=== PATIENT | male | born 1970 | race Caucasian/White ===

== ENCOUNTER → 2017-10-17 | Outpatient (CLI) | payer OTHER ==
[2017-10-17 10:31] LABS: HGB 14.7 gm/dL (13.0-17.5); MCH 33.5 pg (25.0-35.0); MCHC 34.9 g/dL (31.0-37.0); MCV 96.1 fL (80.0-100.0); Mean Platelet Volume 9.2; Platelet Count 100 k/uL (150-450); RBC 4.37 m/uL (4.30-5.90); RDW 13.6 % (11.5-15.5); WBC 5.6 k/uL (3.8-10.6)
[2017-10-17 10:32] LABS: Appearance,Urine Clear (Clear); Bilirubin,Urine Negative (Negative); Blood,Urine Negative (Negative); Color,Urine Light Yellow; Glucose,Urine (UA) Negative (Negative); Ketones,Urine Negative (Negative); Leukocyte Esterase,Urine Negative (Negative); Nitrite,Urine Negative (Negative); Protein,Urine Negative (Negative); Urobilinogen,Urine <2.0 mg/dL (<2.0)
[2017-10-17 10:38] LABS: Partial Thromboplastin Time 25.3 sec (22.0-30.0); Prothrombin Time 9.8 sec (9.0-12.0)
[2017-10-17 10:42] LABS: ALT 47 U/L (21-72); AST 25 U/L (17-59); Albumin 3.9 g/dL (3.5-5.0); Alkaline Phosphatase 68 U/L (38-126); Anion Gap 9 mmol/L; Blood Urea Nitrogen 20 mg/dL (9-20); Calcium 9.1 mg/dL (8.4-10.2); Carbon Dioxide 29 mmol/L (22-30); Chloride 103 mmol/L (98-107); Glucose 92 mg/dL (74-99); Potassium 5.4 mmol/L (3.5-5.1); Sodium 141 mmol/L (137-145); Total Bilirubin 0.8 mg/dL (0.2-1.3); Total Protein 6.1 g/dL (6.3-8.2)
== END | disposition home or self-care (01) ==
LOC: LABPAT 09:43
PROVIDERS: ATTEND Orthopaedic Surgery
DX: Z01.812 Encounter for preprocedural laboratory examination (principal)
CPT/HCPCS: 36415; 80053; 81003; 85027; 85610; 85730; 87070

== ENCOUNTER 2017-11-03 09:34 | Inpatient (IN) | payer OTHER ==
[2017-10-27 12:27] VITALS: BMI 50.9
[~2017-11-03 09:34] MED LIST: ACETAMINOPHEN TAB 500 MG TAB PO ONE; HYDROmorphone 0.5 MG/0.5 ML SYRINGE IVP PRN; ONDANSETRON 4 MG/2 ML VIAL IVP PRN; ROPIVACAINE 246.25 MG, EPINEPHrine 0.5 MG, KETOROLAC 30 MG, cloNIDine HCL/PF 80 MCG, WA... MISCELLANE ONE; TRANEXAMIC ACID 1,000 MG in SODIUM CHLORIDE 0.9% 50 ML IVPB ONE; fentaNYL (PF) 50 MCG/ML 2 ML AMP IV PRN
[2017-11-03] MEDS: MELOXICAM 7.5 MG TAB PO ONE ×2 (10:08→13:45)
[2017-11-03] MEDS ORDERED: LACTATED RINGERS 1,000 ML IV ONE ×3 (10:19→12:21)
[2017-11-03] MEDS ORDERED: LIDOCAINE 1% 20 ML VIAL (10MG/ML) FOR IV START INTRADERMA ONE (10:20)
[2017-11-03] MEDS: ONDANSETRON 4 MG/2 ML VIAL ONE ×2 (10:23→14:31)
[2017-11-03] MEDS ORDERED: DEXAMETHASONE SOD PHOSPHATE 10 MG/ML 1 ML VIAL IV ONE (10:23)
[2017-11-03] MEDS ORDERED: fentaNYL (PF) 50 MCG/ML 2 ML AMP ONE (11:06)
[2017-11-03] MEDS ORDERED: ePHEDrine SULFATE/0.9% NACL/PF 50 MG/5 ML SYRINGE IV ONE (11:06)
[2017-11-03] MEDS ORDERED: MIDAZOLAM 2 MG/2 ML VIAL ONE (11:06)
[2017-11-03] MEDS ORDERED: TRANEXAMIC ACID 1,000 MG/10 ML VIAL ONE (11:06)
[2017-11-03] MEDS ORDERED: SODIUM CHLORIDE 0.9% 100 ML BAG ONE (11:06)
[2017-11-03] MEDS ORDERED: HEPARIN SODIUM,PORCINE 10,000 UNIT/ML 1 ML VIAL ONE (11:06)
[2017-11-03] MEDS ORDERED: LACTATED RINGERS 1,000 ML BAG IV ONE (11:06)
[2017-11-03 11:08] LABS: Basophils % (A) 0 %; Eosinophils # (A) 0.1 k/uL (0-0.7); Eosinophils % (A) 1 %; HCT 43.4 % (39.0-53.0); HGB 15.1 gm/dL (13.0-17.5); Lymphocytes # (A) 1.2 k/uL (1.0-4.8); Lymphocytes % (A) 23 %; MCH 33.4 pg (25.0-35.0); MCHC 34.8 g/dL (31.0-37.0); Mean Platelet Volume 8.9; Monocytes # (A) 0.4 k/uL (0-1.0); Monocytes % (A) 8 %; Neutrophils # (A) 3.5 k/uL (1.3-7.7); Neutrophils % (A) 66 %; Platelet Count 108 k/uL (150-450); RBC 4.52 m/uL (4.30-5.90); WBC 5.3 k/uL (3.8-10.6)
[2017-11-03] MEDS ORDERED: ceFAZolin 3,000 MG in SODIUM CHLORIDE 0.9% IRRIGATIO 3,000 ML IRRIGATION ONE (11:44)
--- NOTE | 2017-11-03 13:37 | XR ---
EXAMINATION TYPE: XR Hip Limited LT DATE OF EXAM: 11/03/2017 COMPARISON: NONE HISTORY: Postop TECHNIQUE: One view submitted. FINDINGS: There is a prosthetic hip in near anatomic alignment. There is soft tissue edema and emphysema. IMPRESSION: 1. Postoperative change. Appears in near-anatomic alignment.
[2017-11-03] MEDS: LACTATED RINGERS 1,000 ML IV SCH ×4 (13:45→17:03)
--- NOTE | 2017-11-03 14:15 | P.OP ---
Date of Procedure: 11/03/17 Preoperative Diagnosis: Severe osteoarthritis left hip Postoperative Diagnosis: Osteoarthritis left hip Procedure(s) Performed: Left total hip arthroplasty with a direct anterior approach Implants: Moncada and nephew Polarstem size 3 standard [employer]cada [employer] Nephew R3, 3 hole acetabular shell, 56 mm [employer]hew reflection 6.5 mm cancellus screw, 20 mm 2 [employer]hew R3, XLPE 20 acetabular liner [employer]cada [employer] Nephew Oxinium femoral head 36 m, +4 All components were press-fit. The articulation is Oxinium on polyethylene. Anesthesia: spinal Surgeon: Markel Lozano Research Professor #1: Josefa Diana Estimated Blood Loss (ml): 380 (230 mL returned with Cell Saver) Pathology: other (Femoral head) Condition: stable Disposition: PACU Indications for Procedure: After failure of conservative treatment we discussed the surgical and nonsurgical treatment options at length. Patient wishes to proceed with a total hip arthroplasty with a direct anterior approach. Complications specific to this procedure were discussed at length, including but not limited to infection, leg length discrepancy, dislocation, and nerve injury. Patient is aware of all these complications and informed consent was obtained Operative Findings: The operative findings are consistent with severe osteoarthritis of the left hip Description of Procedure: Patient was seen and evaluated in the preoperative area, consent was reviewed, and the surgical site was marked with a skin marker. Patient was then brought to the operating room and given prophylactic antibiotics intravenously. 1 g of Tranexamic acid was also given. A spinal anesthetic was administered by the anesthesia department. The patient was then placed on the Dana table with the bony prominences well-padded. The hip area was then prepped and draped in usual sterile fashion. A universal timeout was then performed, which confirmed the patient's name, surgical site, ALLERGIES, and procedure being performed. Next the incision site was located at 1 cm distal and 1 cm lateral to the anterior superior iliac spine. The skin and subcutaneous tissues were sharply incised. Incision was carefully dissected down to the fascia overlying the tensor fascia brittani muscle. This fascia was then incised in line with the incision. Next, using blunt finger dissection, the tensor fascia brittani muscle was dissected off its investing fascia. The muscle was then carefully retracted laterally with a cobra retractor over the lateral neck of the femur. Next, the circumflex vessels were identified and cauterized using the AquaMantis device. The anterior hip capsule was then exposed. The capsule was then opened and an inverted T fashion. Cobra retractors were then placed intracapsularly. The proximal femur was then visualized. The femoral neck was then osteotomized appropriate level above the lesser trochanter. Small amount of traction was placed with the Dana table. A small wedge of bone was then removed from the remaining femoral head. Next, using a corkscrew femoral head was easily removed from the acetabulum. On gross visual inspection, the femoral head had complete loss of articular cartilage in multiple periarticular osteophytes. Attention was then turned to the acetabulum. the acetabulum was exposed and any remaining labrum was excised. Sequential reaming of the acetabulum was performed using fluoroscopic guidance. When the appropriate size was reached, a trial was then placed. The position and fit of the trial was checked with fluoroscopy. The trial was then removed. Then, using fluoroscopic guidance, the final implant was impacted at 20 of anteversion and 40 of abduction, and fully seated in the acetabulum. 2 screws were then placed in the acetabulum. Again fluoroscopy was used to check position of the screws. Next, the liner was then impacted, with a 20 elevated liner located in the anterior superior quadrant. Component locking was confirmed. Attention was then directed to the femur. With the aid of the Dana table, the femur was externally rotated to approximately 130, extended, and abducted under the opposite leg. A side hook was then placed under the proximal femur, and the side hook elevator was used to elevate the proximal femur. Retractors were then placed. A capsular release was performed, as well as a release of the conjoined tendon, which afforded excellent visualization of the proximal femur. Next, a box osteotome was used to lateralize the proximal femur. A hand laster was then used to locate the femoral canal. Sequential broaching was then performed with appropriate size which afforded excellent fixation in the proximal femur. A trial was then placed with appropriate head and neck, and the hip was gently reduced with the aid of the Dana table. Fluoroscopy was then used to check position of the components, as well as to ensure equal leg lengths. The hip was then gently dislocated and the trials were then removed. Final implants were then impacted and the hip was again reduced. Final fluoroscopic x-rays confirmed that the components were in anatomic position, as well as equal leg lengths. The hip was also taken through range of motion, and found to be stable. The hip was then copiously irrigated with antibiotic solution with pulsatile lavage. The hip was then irrigated with Irrisept solution. The soft tissues were then injected with a ropivacaine solution, which consisted of 246.25 mg of ropivacaine, 0.5 mg of epinephrine, 30 mg of Toradol, 80 g of clonidine, and 48.45 mL of sterile water, for a total of 100 mL of fluid injected. A second dose of 1 g of Tranexamic acid was also given. the fascia was then closed with 2-0 strata fix suture. The subcutaneous tissue was closed with 3-0 Vicryl. The subcuticular tissue was closed with 3-0 strata fix suture. The skin was then closed with Dermabond glue and a sterile silver dressing. The patient was then transferred to the recovery room in stable condition. The assistant sales manager DELVIS Ybarra was required due to the complexity of surgery, and the need for skilled surgical brace maker for positioning, draping, exposure, retraction, and closure of the wound.
[2017-11-03] MEDS: HYDROmorphone 0.5 MG/0.5 ML SYRINGE IVP ONE ×2 (14:20→14:28)
--- NOTE | 2017-11-03 14:21 | FL ---
Fluoroscopy HISTORY: Anterior hip placement 39 seconds fluoroscopy time supplied to the referring clinician. 2 intraoperative C-arm images docum ent the procedure. See dictated report from orthopedic surgery.
--- NOTE | 2017-11-03 14:21 | XR ---
Limited left hip HISTORY: Hip replacement 2 intraoperative C-arm images document the procedure
[2017-11-03] MEDS ORDERED: HYDROmorphone 0.5 MG/0.5 ML SYRINGE IVP PRN ×3 (14:35)
[2017-11-03] MEDS ORDERED: HYDROcodone/APAP 5-325MG 1 EACH TAB PO PRN (14:35)
[2017-11-03] MEDS ORDERED: NALOXONE 0.4 MG/ML 1 ML VIAL IV PRN (14:35)
[2017-11-03] MEDS ORDERED: ONDANSETRON 4 MG/2 ML VIAL IVP PRN (14:35)
[2017-11-03] MEDS ORDERED: hydrOXYzine PAMOATE 25 MG CAP PO PRN (14:35)
[2017-11-03] MEDS ORDERED: MAGNESIUM HYDROXIDE 2,400 MG/10 ML CUP PO PRN (14:35)
[2017-11-03] MEDS ORDERED: DIAZEPAM 5 MG TAB PO PRN ×2 (14:35)
[2017-11-03] MEDS: HYDROcodone/APAP 5-325MG 1 EACH TAB PO PRN (15:19)
[2017-11-03] MEDS ORDERED: ceFAZolin 3 GM in SODIUM CHLORIDE 0.9% 100 ML IVPB SCH (16:00)
--- NOTE | 2017-11-03 18:23 | P.CONS ---
History of Present Illness - Reason for Consult Preoperative complication management, thrombocytopenia - History of Present Illness Patient 1-year-old pleasant gentleman admitted for elective Left hip arthroplasty success and underwent surgery urinated post surgery did not pass gas yet did not move his bowel get patient any cough runny nose fever chills patient denied any dysuria. Review of Systems REVIEW OF SYSTEMS: CONSTITUTIONAL: No fever, no malaise, no fatigue. HEENT: No recent visual problems or hearing problems. Denied any sore throat. CARDIOVASCULAR: No chest pain, orthopnea, PND, no palpitations, no syncope. PULMONARY: No shortness of breath, no cough, no hemoptysis. GASTROINTESTINAL: No diarrhea, no nausea, no vomiting, no abdominal pain. Normoactive bowel sounds. NEUROLOGICAL: No headaches, no weakness, no numbness. HEMATOLOGICAL: Denies any bleeding or petechiae. GENITOURINARY: Denies any burning micturition, frequency, or urgency. MUSCULOSKELETAL/RHEUMATOLOGICAL: Denies any joint pain, swelling, or any muscle pain. Complain of some pain in the left hip in the surgical site area ENDOCRINE: Denies any polyuria or polydipsia. The rest of the 14-point review of systems is negative. Past Medical History Past Medical History: GERD/Reflux, Hypertension, Osteoarthritis (OA), Skin Disorder Additional Past Medical History / Comment(s): varicose veins, worse left leg, skin irritation groin, took BP med very briefly few years ago, no issues since History of Any Multi-Drug Resistant Organisms: None Reported Past Surgical History: Tonsillectomy Additional Past Surgical History / Comment(s): myringotomy, tubes in ears Past Anesthesia/Blood Transfusion Reactions: No Reported Reaction Past Psychological History: No Psychological Hx Reported Smoking Status: Never smoker Past Alcohol Use History: Occasional Past Drug Use History: None Reported - Past Family History Mother Family Medical History: Diabetes Mellitus, Hypertension, Thyroid Disorder Additional Family Medical History / Comment(s): crest syndrome, scleroderma, bypass, pacemaker, double amputee Father Family Medical History: Diabetes Mellitus, Hypertension Additional Family Medical History / Comment(s): varicose veins Medications and Allergies Home Medications Medication Instructions Recorded Confirmed Type Clotrimazole/Betameth Cream 1 applic TOPICAL BID PRN 10/27/17 11/03/17 History [Lotrisone] Meloxicam [Mobic] 7.5 mg PO BID 10/27/17 11/03/17 History Allergies Allergy/AdvReac Type Severity Reaction Status Date / Time hydrocodone [From Vicodin] AdvReac Nausea Verified 11/03/17 13:29 lisinopril AdvReac Cough Verified 11/03/17 13:29 Physical Exam Vitals: Vital Signs Temp Pulse Resp BP Pulse Ox 11/03/17 17:00 93 144/76 11/03/17 16:45 95 140/77 11/03/17 16:30 94 129/67 11/03/17 16:15 93 144/77 11/03/17 16:00 95 138/74 11/03/17 15:45 92 137/73 11/03/17 15:30 90 131/67 11/03/17 15:15 87 138/72 11/03/17 15:00 98.9 F 87 18 132/73 97 11/03/17 14:32 87 16 135/72 93 L 11/03/17 14:16 82 16 133/77 97 11/03/17 14:00 87 16 136/63 93 L 11/03/17 13:46 83 16 135/60 94 L 11/03/17 13:31 78 16 141/64 93 L 11/03/17 13:15 72 16 129/62 97 11/03/17 13:04 97.8 F 76 20 126/60 98 11/03/17 10:06 97.1 F L 70 20 129/79 98 Intake and Output 11/03/17 11/03/17 11/03/17 06:59 14:59 22:59 Intake Total 1251 Output Total 380 500 Balance 871 -500 Intake: IV 1251 Output: Urine 500 Estimated Blood Loss 380 Other: Weight 151.953 kg PHYSICAL EXAMINATION: GENERAL: The patient is alert and oriented x3, not in any acute distress. Well developed, well nourished. HEENT: Pupils are round and equally reacting to light. EOMI. No scleral icterus. No conjunctival pallor. Normocephalic, atraumatic. No pharyngeal erythema. No thyromegaly. CARDIOVASCULAR: S1 and S2 present. No murmurs, rubs, or gallops. PULMONARY: Chest is clear to auscultation, no wheezing or crackles. ABDOMEN: Soft, nontender, nondistended, normoactive bowel sounds. No palpable organomegaly. MUSCULOSKELETAL: Deferred to orthopedic surgery EXTREMITIES: No cyanosis, clubbing, or pedal edema. NEUROLOGICAL: Gross neurological examination did not reveal any focal deficits. SKIN: No rashes. Results CBC & Chem 7: 11/03/17 10:47 11/03/17 10:17 Labs: Abnormal Lab Results - Last 24 Hours (Table) 11/03/17 Range/Units 10:47 Plt Count 108 L (150-450) k/uL Assessment and Plan Plan: -Left hip arthroplasty: Postoperative day 0, pain management and DVT prophylaxis per primary service -Thrombocytopenia: Secondary to surgery no further intervention no signs or symptoms of sepsis at this point of time. -Obesity with BMI of 50.9: Counseling was provided We'll continue to follow the patient on as-needed basis thank you for letting me participate in patient's care
[2017-11-03] MEDS: SODIUM CHLORIDE 0.9% 1,000 ML IV SCH (19:23)
[2017-11-03 20:27] VITALS: RESP 16
[2017-11-03] MEDS ORDERED: SENNOSIDES-DOCUSATE SODIUM 1 EACH TAB PO SCH (21:00)
[2017-11-03] MEDS: ASPIRIN 325 MG TAB PO SCH (21:59)
[2017-11-04] MEDS: HYDROcodone/APAP 5-325MG 1 EACH TAB PO PRN (01:47)
[2017-11-04 02:32] VITALS: BP 117/72; TEMP 97.6
[2017-11-04 05:11] VITALS: PULSE 93
[2017-11-04 07:53] LABS: Basophils % (A) 0 %; Eosinophils % (A) 0 %; HCT 40.9 % (39.0-53.0); HGB 14.2 gm/dL (13.0-17.5); Lymphocytes # (A) 0.7 k/uL (1.0-4.8); Lymphocytes % (A) 6 %; MCH 33.5 pg (25.0-35.0); MCHC 34.8 g/dL (31.0-37.0); MCV 96.3 fL (80.0-100.0); Mean Platelet Volume 8.7; Monocytes # (A) 0.7 k/uL (0-1.0); Monocytes % (A) 6 %; Neutrophils # (A) 9.2 k/uL (1.3-7.7); Neutrophils % (A) 86 %; Platelet Count 115 k/uL (150-450); RBC 4.25 m/uL (4.30-5.90); RDW 13.7 % (11.5-15.5); WBC 10.8 k/uL (3.8-10.6)
[2017-11-04] MEDS: SODIUM CHLORIDE 0.9% 1,000 ML IV SCH (08:26)
[2017-11-04] MEDS: ASPIRIN 325 MG TAB PO SCH (08:28)
--- NOTE | 2017-11-04 08:33 | P.DS ---
Providers Date of admission: 11/03/17 09:38 Expected date of discharge: 11/04/17 Attending physician: Markel Lozano Consults: 11/03/17 14:35 Consult Physician Routine Consulting Provider: Markel Cabrera Consult Reason/Comments: medical management Do you want consulting provider notified?: Yes 11/03/17 14:41 Consult Physician Routine Consulting Provider: Asya Slater Consult Reason/Comments: medical management Do you want consulting provider notified?: Yes Primary care physician: Markel Cabrera - Discharge Diagnosis(es) (1) Primary osteoarthritis of left hip Current Visit: Yes Status: Acute (2) S/P total hip arthroplasty Current Visit: Yes Status: Acute Hospital Course: This is a 47-year-old male with known history of degenerative arthritis of the left hip. The patient presents for evaluation. After discussion and consideration patient elects to proceed with total hip arthroplasty. The patient is seen preoperatively by Dr. Lozano and medically cleared for surgery by their primary care physician. Patient is admitted to [facility] on 11/04/2017 for total hip arthroplasty. The procedures performed without complication or sequelae. The patient is doing well postoperatively. Labs and vital signs are stable on day of discharge. On day of discharge patient's hip incision is healing well. There is minimal erythema. There is no drainage noted at this time. There is minimal soft tissue swelling to the hip and thigh. Patient has full foot and ankle motion without difficulty or pain. Neurovascular status to the left lower extremity is intact. Patient is discharged home in good condition. Please see med rec for accurate list of home medications. Plan - Discharge Summary Discharge Rx Participant: Yes New Discharge Prescriptions: New Aspirin 325 mg PO BID #60 tab HYDROcodone/APAP 5-325MG [Morris 5-325] 1 - 2 tab PO Q4-6H PRN #90 tab PRN Reason: Pain Sennosides [Senokot] 1 tab PO BID #60 tablet No Action Meloxicam [Mobic] 7.5 mg PO BID Clotrimazole/Betameth Cream [Lotrisone] 1 applic TOPICAL BID PRN PRN Reason: Skin Irritation Discharge Medication List Clotrimazole/Betameth Cream [Lotrisone] 1 applic TOPICAL BID PRN 10/27/17 [ History] Meloxicam [Mobic] 7.5 mg PO BID 10/27/17 [History] Aspirin 325 mg PO BID #60 tab 11/04/17 [Rx] HYDROcodone/APAP 5-325MG [Morris 5-325] 1 - 2 tab PO Q4-6H PRN #90 tab 11/04/17 [ Rx] Sennosides [Senokot] 1 tab PO BID #60 tablet 11/04/17 [Rx] Follow up Appointment(s)/Referral(s): Markel Lozano DO [Doctor of Osteopathic Medicine] - 2 Weeks Activity/Diet/Wound Care/Special Instructions: Weightbearing as tolerated with walker Leave dressing intact. Dressing may be removed by home care nurse in 10 days. May shower with dressing on. Follow-up with [facility] in 2 weeks, please call with any questions or concerns [phone] Discharge Disposition: HOME WITH HOME HEALTH SERVICES
[2017-11-04] MEDS ORDERED: MELOXICAM 7.5 MG TAB PO SCH (09:00)
== END 2017-11-04 09:57 | disposition home health service (06) | DRG 470 ==
LOC: 2ORMAIN 09:38 → 3SUR 12:58
PROVIDERS: ADMIT Orthopaedic Surgery; ATTEND Orthopaedic Surgery
PROC: 0SRB06A Replacement of Left Hip Joint with Oxidized Zirconium on Polyethylene Synthetic Substitute, Uncemented, Open Approach (ICD-10-PCS; principal; 2017-11-03 11:30)
DX: M16.12 Unilateral primary osteoarthritis, left hip (principal); Z68.43 Body mass index [BMI] 50.0-59.9, adult; D69.6 Thrombocytopenia, unspecified; I10 Essential (primary) hypertension; K21.9 Gastro-esophageal reflux disease without esophagitis; Z82.49 Family history of ischemic heart disease and other diseases of the circulatory system; Z83.3 Family history of diabetes mellitus; Z88.5 Allergy status to narcotic agent; Z88.8 Allergy status to other drugs, medicaments and biological substances; E66.9 Obesity, unspecified; Z71.3 Dietary counseling and surveillance; Z79.1 Long term (current) use of non-steroidal anti-inflammatories (NSAID); Z79.899 Other long term (current) drug therapy
CPT/HCPCS: 36415; 73501; 84132; 85025; 86850; 86891; 86900; 86901; 88300

== ENCOUNTER → 2018-01-12 | Outpatient (CLI) | payer BC ==
--- NOTE | 2018-01-12 11:35 | US ---
EXAMINATION TYPE: US abdomen complete DATE OF EXAM: 01/12/2018 COMPARISON: NONE CLINICAL HISTORY: D69.6, Thrombocytopenia. Large body habitus EXAM MEASUREMENTS: Liver Length: 13.8 cm Gallbladder Wall: 0.4 cm CBD: 0.1 cm Spleen: 12.4 cm Right Kidney: 11.3 x 4.8 x 4.8 cm Left Kidney: 10.9 x 4.3 x 4.3 cm Pancreas: Obscured by bowel gas Liver: fatty liver Gallbladder: multiple stones, gravity dependent, questionable gallbladder wall thickening Evidence for sonographic Rosario's sign: No CBD: wnl Spleen: wnl Right Kidney: wnl Left Kidney: wnl Upper IVC: wnl Abd Aorta: wnl There is poor penetration of the ultrasound beam through the liver. Echotexture is coarse. There is no ascites. Kidneys show normal cortical medullary differentiation. IMPRESSION: Exam is limited. Cholelithiasis, questionable gallbladder wall thickening, correlate for cholecystitis. There may be underlying hepatic steatosis.
== END | disposition home or self-care (01) ==
LOC: RADUSWWP 06:54
PROVIDERS: ATTEND Internal Medicine Hematology & Oncology
DX: K80.20 Calculus of gallbladder without cholecystitis without obstruction (principal); D69.6 Thrombocytopenia, unspecified
CPT/HCPCS: 76700

== ENCOUNTER → 2019-12-13 | Outpatient (CLI) | payer BC ==
--- NOTE | 2019-12-13 15:34 | US ---
EXAMINATION TYPE: US venous doppler duplex LE BI DATE OF EXAM: 12/13/2019 3:16 PM COMPARISON: NONE CLINICAL HISTORY: 49-year-old male E66.01 morbid obesity, R22.41 localized swelling/. Redness, painfu l varicose veins SIDE PERFORMED: Bilateral TECHNIQUE: The lower extremity deep venous system is examined utilizing real time linear array sonog mathieu with graded compression, doppler sonography and color-flow sonography. FINDINGS: VESSELS IMAGED: External Iliac Vein (EIV) Common Femoral Vein Deep Femoral Vein Greater Saphenous Vein * Femoral Vein Popliteal Vein Small Saphenous Vein * Proximal Calf Veins (* superficial vessels) Right Leg: Negative for DVT Left Leg: Negative for DVT Systems Software Engineer notes: Edema and varicose veins noted. No DVT IMPRESSION: 1. No evidence for DVT within the bilateral lower extremities imaged from the groin to the upper calv es. 2. On the left, there is some soft tissue swelling and superficial varicosities noted.
== END | disposition home or self-care (01) ==
LOC: RADUSWWP 14:30
PROVIDERS: ATTEND Family Medicine
DX: R22.41 Localized swelling, mass and lump, right lower limb (principal); R22.42 Localized swelling, mass and lump, left lower limb
CPT/HCPCS: 93970

== ENCOUNTER 2022-08-20 09:58 | Day surgery (SDC) | payer BC ==
[2022-08-18 13:54] VITALS: BMI 47.9
[~2022-08-20 09:58] MED LIST changes: -ACETAMINOPHEN TAB 500 MG TAB PO ONE; -HYDROmorphone 0.5 MG/0.5 ML SYRINGE IVP PRN; +LACTATED RINGERS 1,000 ML IV SCH; -ONDANSETRON 4 MG/2 ML VIAL IVP PRN; -ROPIVACAINE 246.25 MG, EPINEPHrine 0.5 MG, KETOROLAC 30 MG, cloNIDine HCL/PF 80 MCG, WA... MISCELLANE ONE; -TRANEXAMIC ACID 1,000 MG in SODIUM CHLORIDE 0.9% 50 ML IVPB ONE; -fentaNYL (PF) 50 MCG/ML 2 ML AMP IV PRN
[2022-08-20 10:29] VITALS: TEMP 97.8
[2022-08-20] MEDS ORDERED: PROPOFOL 10 MG/ML 20 ML VIAL IV ONE (12:00)
[2022-08-20] MEDS ORDERED: MIDAZOLAM 2 MG/2 ML VIAL ONE (12:00)
--- NOTE | 2022-08-20 12:15 | P.PCN ---
Date of Procedure: 08/20/22 Procedure(s) Performed: BRIEF HISTORY: Patient is a 52-year-old pleasant white male scheduled for an elective colonoscopy as a part of evaluation of prior history of colon polyps. Last colonoscopy was 5 years ago. PROCEDURE PERFORMED: Colonoscopy With biopsy PREOPERATIVE DIAGNOSIS: History of colon polyps. IV sedation per Anesthesia. PROCEDURE: After informed consent was obtained, the patient, was brought into the endoscopy unit. IV sedation was administered by Anesthesia under continuous monitoring. Digital rectal examination was normal. Initially the Olympus CF-160 flexible video colonoscope was then inserted in the rectum, gradually advanced into the cecum without any difficulty. Careful examination was performed as the scope was gradually being withdrawn. Ileocecal valve and the appendiceal orifice were visualized and appeared normal. Prep was fair. In the base of the cecum there was a 3 mm sessile polyp removed by cold biopsy. Mucosa of the cecum, ascending colon, transverse colon, descending colon, appeared normal. The sigmoid: There was another 3 mm polyp that was removed by cold biopsy. Rest of the sigmoid colon, and rectum appeared normal. Retroflexion was performed in the rectum and no lesions were seen. The patient tolerated the procedure well. IMPRESSION: 3 mm cecal polyp status post cold biopsy 3 mm; sigmoid polyp status post cold biopsy Rest of the colon appeared normal RECOMMENDATIONS: Findings of this examination were discussed with the patient [as well as his family. He was advised to follow with the biopsy results. If the biopsy reveals adenoma he can have a repeat colonoscopy in 5 years
[2022-08-20 12:31] VITALS: RESP 16
[2022-08-20 12:53] VITALS: BP 118/78; PULSE 64
== END 2022-08-20 13:15 | disposition home or self-care (01) ==
LOC: ORWHC2ENDO 09:58
PROVIDERS: ATTEND Internal Medicine Gastroenterology
DX: Z12.11 Encounter for screening for malignant neoplasm of colon (principal); K63.5 Polyp of colon; I10 Essential (primary) hypertension; K21.9 Gastro-esophageal reflux disease without esophagitis; Z86.010 Personal history of colon polyps; Z79.899 Other long term (current) drug therapy
CPT/HCPCS: 88305; 45385; J2250; J2704

== ENCOUNTER → 2023-09-30 | Outpatient (CLI) | payer BC ==
--- NOTE | 2023-09-30 09:12 | US ---
EXAMINATION TYPE: US abdomen complete DATE OF EXAM: 09/30/2023 COMPARISON: Abdominal ultrasound 01/12/2018 CLINICAL INDICATION: Male, 53 years old with history of R1011 RUQ pain, R1013 epigastric pain, R140 gaseous; Pain. Abnormal labs. Hx gallstones TECHNIQUE: Multiple sonographic images of the abdomen are obtained. FINDINGS: EXAM MEASUREMENTS: Liver Length: 18.9 cm Gallbladder Wall: 0.1 cm CBD: 0.5 cm Spleen: 14.7 cm Right Kidney: 10.7 x 5.7 x 5.1 cm Left Kidney: 11.0 x 5.0 x 4.7 cm CONSULTANT IN ERGONOMICS AND SAFETY NOTES: Limited due to patient body habitus Pancreas: Obscured by bowel gas Liver: Enlarged in size, echogenic, limited visualization Gallbladder: Multiple echogenic foci seen Evidence for sonographic Rosario's sign: neg CBD: wnl Spleen: Enlarged in size Right Kidney: No hydronephrosis or masses seen Left Kidney: No hydronephrosis or masses seen Upper IVC: Obscured by overlying bowel gas Abd Aorta: Proximal obscured by overlying bowel gas The liver is diffusely echogenic and enlarged. No focal lesion identified however the echogenicity li mits evaluation. The intrahepatic portion of the IVC and proximal abdominal aorta are obscured by ove rlying bowel gas. The mid and distal portions of the abdominal aorta are within normal limits. Negati ve sonographic Rosario sign or gallbladder wall thickening. Multiple gallstones identified. Common bi le duct is unremarkable. The pancreas is obscured by overlying bowel gas. The spleen is mildly enlar ged. Kidneys are symmetric and free of hydronephrosis. No renal lesions are seen. No free fluid iden tified within the visualized abdomen. IMPRESSION: 1. Cholelithiasis without ultrasound evidence for acute cholecystitis. 2. Hepatomegaly and hepatic steatosis. 3. Splenomegaly.
== END | disposition home or self-care (01) ==
LOC: RADUSWWP 07:54
PROVIDERS: ATTEND Family Medicine
DX: K80.20 Calculus of gallbladder without cholecystitis without obstruction (principal); K76.0 Fatty (change of) liver, not elsewhere classified; R16.2 Hepatomegaly with splenomegaly, not elsewhere classified; R14.0 Abdominal distension (gaseous); R79.9 Abnormal finding of blood chemistry, unspecified
CPT/HCPCS: 76700

== ENCOUNTER 2024-02-07 17:24 | Inpatient (IN) | payer BC ==
--- NOTE | 2024-02-07 18:11 | ED ---
Abdominal Pain HPI - General Chief Complaint: Abdominal Pain Stated Complaint: Abd pain Time Seen by Provider: 02/07/24 18:10 Source: patient, family, RN notes reviewed Mode of arrival: ambulatory Limitations: no limitations - History of Present Illness Initial Comments: 53-year-old male presented to the ER with a chief complaint of epigastric abdominal pain. Patient was eating chicken tenders yesterday during onset of pain. Patient was had a long car ride home and had multiple bouts of nausea and vomiting on the way home. He has tried Pepto-Bismol and Tums with relief last night. Patient states he ate oatmeal this morning and around lunchtime consumed mac & cheese and pizza. Patient reports pain returned after mac & cheese and pizza for lunch. Patient also states pain has been wrapping around to right flank and back. Admits to nausea and vomiting. Denies any fevers, chills, diarrhea, constipation, urinary complaints. - Related Data Home Medications Medication Instructions Recorded Confirmed Losartan/Hydrochlorothiazide 1 tab PO DAILY 08/18/22 08/20/22 [Losartan-Hctz 100-25 mg Tab] Testosterone Cypionate 200 mg IM Q14D 08/18/22 08/20/22 [Depo-Testosterone] Allergies Allergy/AdvReac Type Severity Reaction Status Date / Time hydrocodone [From Vicodin] AdvReac Nausea Verified 02/07/24 17:30 lisinopril AdvReac Cough Verified 02/07/24 17:30 Review of Systems ROS Statement: Those systems with pertinent positive or pertinent negative responses have been documented in the HPI. ROS Other: All systems not noted in ROS Statement are negative. Past Medical History Past Medical History: GERD/Reflux, Hypertension, Osteoarthritis (OA) Additional Past Medical History / Comment(s): Varicose veins, worse in left leg. History of Any Multi-Drug Resistant Organisms: None Reported Past Surgical History: Ear Surgery, Joint Replacement, Tonsillectomy Additional Past Surgical History / Comment(s): Myringotomy, tubes in ears, left hip replacement, procedures to varicose veins left leg, colonoscopy X2. Past Anesthesia/Blood Transfusion Reactions: No Reported Reaction, Motion Sickness Past Psychological History: No Psychological Hx Reported Smoking Status: Never smoker Past Alcohol Use History: None Reported Past Drug Use History: None Reported - Past Family History Mother Family Medical History: Diabetes Mellitus, Hypertension, Thyroid Disorder Additional Family Medical History / Comment(s): Crest syndrome, scleroderma, bypass, pacemaker, double amputee. Father Family Medical History: Diabetes Mellitus, Hypertension Additional Family Medical History / Comment(s): Varicose veins. General Exam - General Exam Comments Initial Comments: Visual Physical Exam Vital signs reviewed General: Well-appearing, nontoxic, no acute distress. Head: Normocephalic, atraumatic Eyes: PERRLA, EOMI ENT: Airway patent Chest: Nonlabored breathing Skin: No visual rash, normal skin tone Neuro: Alert and oriented 3 Musculoskeletal: No gross abnormalities Limitations: no limitations General appearance: alert, in no apparent distress, anxious (Patient is pacing in hallway unable to lay down due to pain.) Respiratory exam: Present: normal lung sounds bilaterally. Absent: respiratory distress, wheezes, rales, rhonchi, stridor Cardiovascular Exam: Present: regular rate, normal rhythm, normal heart sounds. Absent: systolic murmur, diastolic murmur, rubs, gallop, clicks GI/Abdominal exam: Present: soft, tenderness (Right upper quadrant/epigastric), normal bowel sounds Back exam: Present: normal inspection Neurological exam: Present: alert, oriented X3, CN II-XII intact Skin exam: Present: warm, dry, intact, normal color. Absent: rash Course Vital Signs 02/07/24 02/07/24 17:27 22:03 Temperature 98.1 F 97.9 F Pulse Rate 84 67 Respiratory 16 16 Rate Blood Pressure 159/82 136/80 O2 Sat by Pulse 99 97 Oximetry - Reevaluation(s) Reevaluation #1: 02/07/24 20:45 Case discussed with on-call general surgery, Dr. Burleson who advised on medical admission. 02/07/24 20:58 Case discussed with [facility] physician, Dr. Linares for admission. Medical Decision Making - Medical Decision Making I performed the quick note portion of this chart. Electronically signed by Darek Mcgovern PA-C Was pt. sent in by a medical professional or institution (DELVIS Slater, MATERIAL FLOW ENGINEER, urgent care, hospital, or detention...) When possible be specific @ -No Did you speak to anyone other than the patient for history (EMS, parent, family, police, friend...)? What history was obtained from this source @ -, at bedside, aiding in HPI and past medical history. Did you review nursing and triage notes (agree or disagree)? Why? @ -I reviewed and agree with nursing and triage notes Were old charts reviewed (outside hosp., previous admission, EMS record, old EKG, old radiological studies, urgent care reports/EKG's, detention records)? Report findings @ -No old charts were reviewed Differential Diagnosis (chest pain, altered mental status, abdominal pain women, abdominal pain men, vaginal bleeding, weakness, fever, dyspnea, syncope, headache, dizziness, GI bleed, back pain, seizure, CVA, palpatations, mental health, musculoskeletal)? @ -Differential Abdominal Pain Men: Appendicitis, cholecystitis, diverticulosis, ischemic bowel, pancreatitis, hepatitis, UTI, gastroenteritis, AAA, incarcerated hernia, bowel obstruction, constipation, inflammatory bowel, hepatitis, peptic ulcer disease, splenic infarction, perforated viscus, testicular torsion, this is not meant to be an all-inclusive list EKG interpreted by me (3pts min.). @ -As above X-rays interpreted by me (1pt min.). @ -None done CT interpreted by me (1pt min.). @ -None done U/S interpreted by me (1pt. min.). @ -Gallbladder ultrasound showing cholelithiasis with positive sonographic Rosario sign correlate with acute cholecystitis. Common bile duct 0.8 cm. What testing was considered but not performed or refused? (CT, X-rays, U/S, labs)? Why? @ -None What meds were considered but not given or refused? Why? @ -None Did you discuss the management of the patient with other professionals (professionals i.e. , PA, MATERIAL FLOW ENGINEER, lab, RT, psych nurse, licensed clinical social worker, animal trapper, teacher, credit control officer, piano case maker)? Give summary @ -Yes, case discussed with on-call general surgery, Dr. Burleson, who advises on admission to medicine with surgery on consult. Case discussed with sound physician, Dr. Linares for admission. Was smoking cessation discussed for >3mins.? @ -No Was critical care preformed (if so, how long)? @ -No Were there social determinants of health that impacted care today? How? (Homelessness, low income, unemployed, alcoholism, drug addiction, transportation, low edu. Level, literacy, decrease access to med. care, fdc, rehab)? @ -No Was there de-escalation of care discussed even if they declined (Discuss DNR or withdrawal of care, Hospice)? DNR status @ -No What co-morbidities impacted this encounter? (DM, HTN, Smoking, COPD, CAD, Cancer, CVA, ARF, Chemo, Hep., AIDS, mental health diagnosis, sleep apnea, morbid obesity)? @ -Obese, hypertension, GERD Was patient admitted / discharged? Hospital course, mention meds given and route, prescriptions, significant lab abnormalities, going to OR and other pertinent info. @ -Admitted. 53-year-old male presented the ER with a chief complaint of epigastric abdominal pain. Patient originally seen by myself as a quick note. History and physical exam completed upon arrival to [facility]. Vitals within normal limits. Patient pacing in hallway as he is in too much pain to lay down. Exam remarkable for right upper quadrant/epigastric abdominal pain no rebound or guarding. Normal bowel sounds. No CVA tenderness. Laboratory studies obtained showing a WBC 7.1, lactic 1.4. Transaminitis (total bilirubin 3.4, AST 237, ALT 248, alk phos 136). Urine analysis unremarkable. Amylase 58, lipase 189. Gallbladder ultrasound showing cholelithiasis with positive sonographic Rosario sign correlate with acute cholecystitis. Common bile duct measuring 0.8 cm. Due to transaminitis and ultrasound CBD enlargement findings admission considered for cholecystitis rule out choledocholithiasis. Case discussed with on-call general surgery, Dr. Burleson, who advises on admission to medicine with surgery and GI on consult. Case discussed with [facility] [place] physicia n, Dr. Linares who accepts admission. IV Zosyn and blood cultures ordered by Dr. Linares. GI on consult. Patient received IV Toradol and IV Zofran for symptom control in the ER, with improvement. Patient agreeable for admission. Patient admitted in stable condition for further evaluation and treatment. Case discussed with ED attending, Dr. Mac. Undiagnosed new problem with uncertain prognosis? @ -No Drug Therapy requiring intensive monitoring for toxicity (Heparin, Nitro, In sulin, Cardizem)? @ -No Were any procedures done? @ -No Diagnosis/symptom? @ -Cholecystitis rule out choledocholithiasis Acute, or Chronic, or Acute on Chronic? @ -Acute Uncomplicated (without systemic symptoms) or Complicated (systemic symptoms)? @ -Complicated Side effects of treatment? @ -No Exacerbation, Progression, or Severe Exacerbation? @ -No Poses a threat to life or bodily function? How? (Chest pain, [place], [place], pneumonia, PE, COPD, DKA, ARF, appy, cholecystitis, CVA, Diverticulitis, Homicidal, Suicidal, threat to staff... and all critical care pts) @ -Yes, cholecystitis and choledocholithiasis can lead to sepsis which can lead to end organ dysfunction. - Lab Data Result diagrams: 02/07/24 19:15 02/07/24 19:15 Lab Results 02/07/24 02/07/24 02/07/24 Range/Units 19:15 19:15 19:15 WBC 7.1 (3.8-10.6) k/uL RBC 5.16 (4.30-5.90) m/uL Hgb 17.7 H (13.0-17.5) gm/dL Hct 52.0 (39.0-53.0) % MCV 100.9 H (80.0-100.0) fL MCH 34.4 (25.0-35.0) pg MCHC 34.1 (31.0-37.0) g/dL RDW 13.1 (11.5-15.5) % Plt Count 117 L (150-450) k/uL MPV 9.8 Neutrophils % 78 % Lymphocytes % 14 % Monocytes % 6 % Eosinophils % 1 % Basophils % 0 % Neutrophils # 5.5 (1.3-7.7) k/uL Lymphocytes # 1.0 (1.0-4.8) k/uL Monocytes # 0.4 (0-1.0) k/uL Eosinophils # 0.1 (0-0.7) k/uL Basophils # 0.0 (0-0.2) k/uL Macrocytosis Slight Sodium 140 (137-145) mmol/L Potassium 3.7 (3.5-5.1) mmol/L Chloride 96 L (98-107) mmol/L Carbon Dioxide 34 H (22-30) mmol/L Anion Gap 10 mmol/L BUN 21 H (9-20) mg/dL Creatinine 1.03 (0.66-1.25) mg/dL Est GFR (CKD-EPI)AfAm >90 (>60 ml/min/1.73 sqM) Est GFR (CKD-EPI)NonAf 82 (>60 ml/min/1.73 sqM) Glucose 112 H (74-99) mg/dL Plasma Lactic Acid Mathew (0.7-2.0) mmol/L Calcium 10.2 (8.4-10.2) mg/dL Total Bilirubin 3.4 H (0.2-1.3) mg/dL AST 237 H (17-59) U/L ALT 248 H (4-49) U/L Alkaline Phosphatase 136 H (38-126) U/L Total Protein 7.7 (6.3-8.2) g/dL Albumin 5.1 H (3.5-5.0) g/dL Amylase 58 (30-110) U/L Lipase 189 (23-300) U/L Urine Color Yellow Urine Appearance Clear (Clear) Urine pH 6.5 (5.0-8.0) Ur Specific Martha 1.017 (1.001-1.035) Urine Protein Negative (Negative) Urine Glucose (UA) Negative (Negative) Urine Ketones Negative (Negative) Urine Blood Negative (Negative) Urine Nitrite Negative (Negative) Urine Bilirubin Negative (Negative) Urine Urobilinogen 2.0 (<2.0) mg/dL Ur Leukocyte Esterase Large H (Negative) Urine RBC 1 (0-5) /hpf Urine WBC 2 (0-5) /hpf Urine Mucus Rare H (None) /hpf 02/07/24 Range/Units 19:15 WBC (3.8-10.6) k/uL RBC (4.30-5.90) m/uL Hgb (13.0-17.5) gm/dL Hct (39.0-53.0) % MCV (80.0-100.0) fL MCH (25.0-35.0) pg MCHC (31.0-37.0) g/dL RDW (11.5-15.5) % Plt Count (150-450) k/uL MPV Neutrophils % % Lymphocytes % % Monocytes % % Eosinophils % % Basophils % % Neutrophils # (1.3-7.7) k/uL Lymphocytes # (1.0-4.8) k/uL Monocytes # (0-1.0) k/uL Eosinophils # (0-0.7) k/uL Basophils # (0-0.2) k/uL Macrocytosis Sodium (137-145) mmol/L Potassium (3.5-5.1) mmol/L Chloride (98-107) mmol/L Carbon Dioxide (22-30) mmol/L Anion Gap mmol/L BUN (9-20) mg/dL Creatinine (0.66-1.25) mg/dL Est GFR (CKD-EPI)AfAm (>60 ml/min/1.73 sqM) Est GFR (CKD-EPI)NonAf (>60 ml/min/1.73 sqM) Glucose (74-99) mg/dL Plasma Lactic Acid Mathew 1.4 (0.7-2.0) mmol/L Calcium (8.4-10.2) mg/dL Total Bilirubin (0.2-1.3) mg/dL AST (17-59) U/L ALT (4-49) U/L Alkaline Phosphatase (38-126) U/L Total Protein (6.3-8.2) g/dL Albumin (3.5-5.0) g/dL Amylase (30-110) U/L Lipase (23-300) U/L Urine Color Urine Appearance (Clear) Urine pH (5.0-8.0) Ur Specific Martha (1.001-1.035) Urine Protein (Negative) Urine Glucose (UA) (Negative) Urine Ketones (Negative) Urine Blood (Negative) Urine Nitrite (Negative) Urine Bilirubin (Negative) Urine Urobilinogen (<2.0) mg/dL Ur Leukocyte Esterase (Negative) Urine RBC (0-5) /hpf Urine WBC (0-5) /hpf Urine Mucus (None) /hpf - EKG Data -: EKG Interpreted by Hi EKG Comments: EKG taken at 19: 19 showing a sinus rhythm. Inverted T waves in lead III. No acute ST segment depression or elevation. Normal axis. Ventricular rate 84, AR interval 151, QRS duration 94, QT/QTc 328/368. - Radiology Data Radiology results: report reviewed, image reviewed Disposition Clinical Impression: Acute cholecystitis, Transaminitis Disposition: ADMITTED IP TO THIS [facility] Condition: Stable Time of Disposition: 20:54
[2024-02-07] MEDS: ONDANSETRON 4 MG/2 ML VIAL IVP STA (19:31)
[2024-02-07 19:32] LABS: Basophils % (A) 0 %; Eosinophils # (A) 0.1 k/uL (0-0.7); Eosinophils % (A) 1 %; HGB 17.7 gm/dL (13.0-17.5); Lymphocytes % (A) 14 %; MCH 34.4 pg (25.0-35.0); MCHC 34.1 g/dL (31.0-37.0); MCV 100.9 fL (80.0-100.0); Macrocytosis Slight; Mean Platelet Volume 9.8; Monocytes # (A) 0.4 k/uL (0-1.0); Monocytes % (A) 6 %; Neutrophils # (A) 5.5 k/uL (1.3-7.7); Neutrophils % (A) 78 %; Platelet Count 117 k/uL (150-450); RBC 5.16 m/uL (4.30-5.90); RDW 13.1 % (11.5-15.5); WBC 7.1 k/uL (3.8-10.6)
[2024-02-07] MEDS: KETOROLAC 15 MG/ML 1 ML VIAL IVP STA (19:32)
[2024-02-07] MEDS: SODIUM CHLORIDE 0.9% 1,000 ML IV STA (19:33)
[2024-02-07] MEDS: FAMOTIDINE 20 MG/2 ML VIAL IV STA (19:35)
[2024-02-07 19:56] LABS: Appearance,Urine Clear (Clear); Bilirubin,Urine Negative (Negative); Blood,Urine Negative (Negative); Color,Urine Yellow; Glucose,Urine (UA) Negative (Negative); Ketones,Urine Negative (Negative); Leukocyte Esterase,Urine Large (Negative); Mucus,Urine Rare /hpf; Nitrite,Urine Negative (Negative); PH, Urine 6.5 (5.0-8.0); Protein,Urine Negative (Negative); RBC,Urine 1 /hpf (0-5); Specific Gravity,Urine 1.017 (1.001-1.035); WBC,Urine 2 /hpf (0-5)
[2024-02-07 19:59] LABS: ALT 248 U/L (4-49); AST 237 U/L (17-59); African American GFR (CKD) >90 (>60 ml/min/1.73 sqM); Albumin 5.1 g/dL (3.5-5.0); Alkaline Phosphatase 136 U/L (38-126); Amylase 58 U/L (30-110); Anion Gap 10 mmol/L; Blood Urea Nitrogen 21 mg/dL (9-20); Calcium 10.2 mg/dL (8.4-10.2); Carbon Dioxide 34 mmol/L (22-30); Chloride 96 mmol/L (98-107); Glucose 112 mg/dL (74-99); Lipase 189 U/L (23-300); Non-African American GFR(CKD) 82 (>60 ml/min/1.73 sqM); Potassium 3.7 mmol/L (3.5-5.1); Sodium 140 mmol/L (137-145); Total Bilirubin 3.4 mg/dL (0.2-1.3); Total Protein 7.7 g/dL (6.3-8.2)
--- NOTE | 2024-02-07 20:07 | US ---
EXAMINATION TYPE: US gallbladder DATE OF EXAM: 02/07/2024 COMPARISON: US CLINICAL INDICATION: Male, 53 years old with history of RUQ/epigastric abd pain; Pain, known gallston es TECHNIQUE: Multiple sonographic images of the right upper quadrant are obtained. FINDINGS: EXAM MEASUREMENTS: Liver Length: 20.1 cm Gallbladder Wall: 0.3 cm CBD: 0.8 cm Right Kidney: 11.4 x 5.3 x 5.2 cm INTERACTIVE DIGITAL MEDIA SPECIALIST NOTES: Large pt body habitus* Pancreas: Obscured by bowel gas Liver: Enlarged, difficult to penetrate Gallbladder: Multiple gallstones, wall thickness upper limits of normal Evidence for sonographic Rosario's sign: Yesq CBD: Dilated Right Kidney: No evidence of hydro IMPRESSION: Cholelithiasis with positive sonographic Rosario sign correlate for acute cholecystitis. The wall is w ithin normal limits for size. [facility], , 02/07/2024 8:05 PM
[2024-02-07] MEDS ORDERED: ACETAMINOPHEN TAB 325 MG TAB PO PRN (20:54)
[2024-02-07] MEDS ORDERED: NALOXONE 0.4 MG/ML 1 ML VIAL IV PRN (20:54)
[2024-02-07] MEDS: SODIUM CHLORIDE 0.9% 1,000 ML IV SCH (21:38)
[2024-02-07] MEDS: PIPERACILLIN-TAZOBACTAM 3.375 GM in SODIUM CHLORIDE 0.9% 100 ML IVPB SCH (21:40)
[2024-02-07] MEDS: HYDROmorphone 1 MG/ML 1 ML SYRINGE IVP STA (22:24)
--- NOTE | 2024-02-08 01:30 | P.HPIM ---
History of Present Illness H&P Date: 02/07/24 Chief Complaint: abd pain 53 year old male with Hypertension , JUANJO patient coming in for abd pain which started yesterday 6-8 /10 in severity , RUQ, radiating to the back, associated with vomiting, started yesterday , improved at night , and got worse again this afternoon. usually getting worse with fatty meals, last night pain started after eating some romansh fries , and today pain precipitated with Mac and cheese at lunch. denies any abd trauma or surgery . he is aware of gall stones since September 2023 when he had similar symptoms. denies any fever, chills, GI bleeding. denies smoking , denies street drugs or heavy alcohol review of systems Pertinent positives as noted in HPI. All other systems were reviewed and are negative on exam Constitutional: No acute distress, conversant, pleasant Eyes: Anicteric sclerae, moist conjunctiva, Pupils equal round reactive to light ENMT: NC/AT Oropharynx clear, no erythema, or exudates Neck: Supple, no masses, or JVD No carotid bruits No thyromegaly Lungs: Clear to auscultation Clear to percussion Normal respiratory effort, no accessory muscle use Cardiovascular: Heart regular in rate and rhythm, No murmurs, gallops, or rubs No peripheral edema Abdominal: Soft RUQ tenderness , Rosario sign positive, no guarding, rebound or rigidity Abdomen moving with respiration Normoactive bowel sounds Extremities: No digital cyanosis No clubbing Pedal pulses intact and symmetrical Radial pulses intact and symmetrical No calf tenderness Psychiatric: Alert and oriented to person, place and time Appropriate affect fair judgement Neuro Muscles Strength 5/5 in all 4 extremities Sensation to light touch grossly present throughout Cranial nerves II-XII grossly intact Past Medical History Past Medical History: GERD/Reflux, Hypertension, Osteoarthritis (OA) Additional Past Medical History / Comment(s): Varicose veins, worse in left leg. History of Any Multi-Drug Resistant Organisms: None Reported Past Surgical History: Ear Surgery, Joint Replacement, Tonsillectomy Additional Past Surgical History / Comment(s): Myringotomy, tubes in ears, left hip replacement, procedures to varicose veins left leg, colonoscopy X2. Past Anesthesia/Blood Transfusion Reactions: No Reported Reaction, Motion Sickness Past Psychological History: No Psychological Hx Reported Smoking Status: Never smoker Past Alcohol Use History: None Reported Past Drug Use History: None Reported - Past Family History Mother Family Medical History: Diabetes Mellitus, Hypertension, Thyroid Disorder Additional Family Medical History / Comment(s): Crest syndrome, scleroderma, bypass, pacemaker, double amputee. Father Family Medical History: Diabetes Mellitus, Hypertension Additional Family Medical History / Comment(s): Varicose veins. Medications and Allergies Home Medications Medication Instructions Recorded Confirmed Type Losartan/Hydrochlorothiazide 1 tab PO DAILY 08/18/22 08/20/22 History [Losartan-Hctz 100-25 mg Tab] Testosterone Cypionate 200 mg IM Q14D 08/18/22 08/20/22 History [Depo-Testosterone] Allergies Allergy/AdvReac Type Severity Reaction Status Date / Time hydrocodone [From Vicodin] AdvReac Nausea Verified 02/07/24 17:30 lisinopril AdvReac Cough Verified 02/07/24 17:30 Physical Exam Vitals: Vital Signs Temp Pulse Resp BP Pulse Ox 02/07/24 17:27 98.1 F 84 16 159/82 99 Intake and Output 02/07/24 02/07/24 02/07/24 06:59 14:59 22:59 Other: Weight 136.078 kg Results CBC & Chem 7: 02/07/24 19:15 02/07/24 19:15 Labs: Abnormal Lab Results - Last 24 Hours (Table) 02/07/24 02/07/24 02/07/24 Range/Units 19:15 19:15 19:15 Hgb 17.7 H (13.0-17.5) gm/dL MCV 100.9 H (80.0-100.0) fL Plt Count 117 L (150-450) k/uL Chloride 96 L (98-107) mmol/L Carbon Dioxide 34 H (22-30) mmol/L BUN 21 H (9-20) mg/dL Glucose 112 H (74-99) mg/dL Total Bilirubin 3.4 H (0.2-1.3) mg/dL AST 237 H (17-59) U/L ALT 248 H (4-49) U/L Alkaline Phosphatase 136 H (38-126) U/L Albumin 5.1 H (3.5-5.0) g/dL Ur Leukocyte Esterase Large H (Negative) Urine Mucus Rare H (None) /hpf Assessment and Plan Assessment: 53 year old male with hypertension , JUANJO, coming in for sudden onset abd pain and vomiting, I discussed the case with ED doc and I accepted the admission for choledocholithiasis with acute cholecystitis with anticipated length of stay > 2 midnights choledocholithiasis with acute cholecystitis transaminitis , rule out ascending cholangitis NPO blood cultures initiate Zosyn 3.375 gm IVPB q8 hrs tylenol 650 mg po Q6hr PRN for fever morphine 4 mg IVP prn q3 hr prn for pain zofran 4 mg IVP q 8 hr PRN for nausea vomiting NS 0.9% IV hydration 100 cc per hour WBC unremarkable 7.1 Hgn 17.7 elevated liver enzymes Bili 3.4 , AST 237 ALT 248 ALK Phos 136 GI consult surgery consult Abd US showed cholelithiasis and possible acute cholecystitis hypertension resume losartan JUANJO recently started on CPAP not sure of his settings at this time full code DVT PPX heparin sc 5000 units tid NPO diet
[2024-02-08] MEDS: HEPARIN SODIUM,PORCINE 5,000 UNIT/ML 1 ML VIAL SQ SCH (07:38)
--- NOTE | 2024-02-08 07:47 | P.PN ---
Progress Note - Text Progress Note Date: 02/08/24 53-year-old male presented to the ER with a chief complaint of epigastric abdominal pain. Patient was eating chicken tenders yesterday during onset of pain. Patient was had a long car ride home and had multiple bouts of nausea and vomiting on the way home. He has tried Pepto-Bismol and Tums with relief last night. Patient states he ate oatmeal this morning and around lunchtime consumed mac & cheese and pizza. Patient reports pain returned after mac & cheese and pizza for lunch. Patient also states pain has been wrapping around to right flank and back. Admits to nausea and vomiting. Denies any fevers, chills, diarrhea, constipation, urinary complaints. He is noted to elevated Bilirubin and LFTs. His US is significant for cholelithiasis. Review of Systems ROS Statement: Those systems with pertinent positive or pertinent negative responses have been documented in the HPI. Past Medical History Past Medical History: GERD/Reflux, Hypertension, Osteoarthritis (OA) Additional Past Medical History / Comment(s): Varicose veins, worse in left leg. History of Any Multi-Drug Resistant Organisms: None Reported Past Surgical History: Ear Surgery, Joint Replacement, Tonsillectomy Additional Past Surgical History / Comment(s): Myringotomy, tubes in ears, left hip replacement, procedures to varicose veins left leg, colonoscopy X2. Past Anesthesia/Blood Transfusion Reactions: No Reported Reaction, Motion Sickness Past Psychological History: No Psychological Hx Reported Smoking Status: Never smoker Past Alcohol Use History: None Reported Past Drug Use History: None Reported - Past Family History Mother Family Medical History: Diabetes Mellitus, Hypertension, Thyroid Disorder Additional Family Medical History / Comment(s): Crest syndrome, scleroderma, bypass, pacemaker, double amputee. Father Family Medical History: Diabetes Mellitus, Hypertension Additional Family Medical History / Comment(s): Varicose veins. General Exam Limitations: no limitations General appearance: alert, in no apparent distress, anxious (Patient is pacing in hallway unable to lay down due to pain.) Respiratory exam: Present: normal lung sounds bilaterally. Absent: respiratory distress, wheezes, rales, rhonchi, stridor Cardiovascular Exam: Present: regular rate, normal rhythm, normal heart sounds. Absent: systolic murmur, diastolic murmur, rubs, gallop, clicks GI/Abdominal exam: Present: soft, tenderness (Right upper quadrant/epigastric), normal bowel sounds Back exam: Present: normal inspection Neurological exam: Present: alert, oriented X3, CN II-XII intact Skin exam: Present: warm, dry, intact, normal color. Absent: rash 53 year old male Cholelithiasis and associated elevated Bilirubin -US reviewed -MRCP ordered to evaluate for likely Choledocholithiasis -GI consult for evaluation and possible ERCP -Will plan for inpatient Cholecystectomy after GI eval and possible treatment -Pain and Nausea Control Juan Burleson DO [facility] [phone]
[2024-02-08] MEDS: LOSARTAN-HCTZ 50-12.5 MG 1 EACH TAB PO SCH (08:53)
[2024-02-08 09:30] LABS: Prothrombin Time 10.8 sec (10.0-12.5)
[2024-02-08 10:35] LABS: ALT 321 U/L (10-49); AST 234 U/L (14-35); Albumin 3.7 g/dL (3.8-4.9); Albumin/Globulin Ratio 2.47 Ratio (1.60-3.17); Alkaline Phosphatase 125 U/L (41-126); Blood Urea Nitrogen 17.6 mg/dL (9.0-27.0); Calcium 8.5 mg/dL (8.7-10.3); Carbon Dioxide 25.2 mmol/L (21.6-31.8); Chloride 107 mmol/L (96-109); Globulin 1.5 g/dL (1.6-3.3); Glucose 104 mg/dL (70-110); Potassium 4.1 mmol/L (3.5-5.5); Sodium 141 mmol/L (135-145); Total Bilirubin 1.2 mg/dL (0.3-1.2); Total Protein 5.2 g/dL (6.2-8.2)
--- NOTE | 2024-02-08 10:54 | P.CONS ---
History of Present Illness - Reason for Consult Consult date: 02/08/24 Choledocholithiasis Requesting physician: Myesha Mcgovern - Chief Complaint Abdominal pain - History of Present Illness This a pleasant 53-year-old male who presented to the emergency department with complaints of epigastric and right upper quadrant abdominal pain associated with nausea and vomiting. Patient was out of town over the weekend and Thursday had some fried foods and following that he had epigastric pain. He had tried taking some Tums. No and improvement in symptoms he was traveling home with severe abdominal pain followed by nausea and vomiting. He reports most of the abdominal pain in the epigastric region did go a little to the right side no real pain in his back. He had labs done and was noted to have elevated LFTs and bilirubin, underwent gallbladder ultrasound reporting CBD dilation, cholelithiasis correlate for acute cholecystitis. There was multiple gallstones in the gallbladder. Patient does have a history of obesity, elevated LFTs and has been recently diagnosed in monitor for fatty liver disease, GERD, thrombocytopenia and hypertension. Patient states he has had thrombocytopenia for many years, no formal workup. Gastroenterology consulted for possible choledocholithiasis. Patient denies any abdominal pain currently, no nausea or vomiting. He has been afebrile. Admitting labs WBC 7.1 hemoglobin 17.7 hematocrit 52 platelet count 117,000 INR 1.0 sodium 140 potassium 3.7 BUN 21 creatinine 1.03 total bilirubin 3.4 AST 237 ALT 248 alkaline phosphatase 136 amylase 58 lipase 189. Today's labs are currently pending. Review of Systems REVIEW OF SYSTEMS: CARDIOPULMONARY: No chest pain or shortness of breath. Gastrointestinal: Abdominal pain mostly in the epigastric region now improved. Nausea and vomiting now improved. No hematemesis, coffee-ground emesis. No rectal bleeding, or melena. GENITOURINARY: No dysuria or hematuria. MUSCULOSKELETAL: Reports normal range of motion., Joint pain. SKIN: No rashes. No jaundice. ENDOCRINE: No chills, fevers. No excessive weight gain or loss. No polydipsia or polyuria. PSYCHIATRIC: Unremarkable. NEUROLOGY: No change in mental status. Denies dizziness, headache. ENT: Vision unremarkable. CONSTITUTIONAL: No recent weight loss. No fever, chills, night sweats. Past Medical History Past Medical History: GERD/Reflux, Hypertension, Osteoarthritis (OA) Additional Past Medical History / Comment(s): Varicose veins, worse in left leg. History of Any Multi-Drug Resistant Organisms: None Reported Past Surgical History: Ear Surgery, Joint Replacement, Tonsillectomy Additional Past Surgical History / Comment(s): Myringotomy, tubes in ears, left hip replacement, procedures to varicose veins left leg, colonoscopy X2. Past Anesthesia/Blood Transfusion Reactions: No Reported Reaction, Motion Sickness Past Psychological History: No Psychological Hx Reported Smoking Status: Never smoker Past Alcohol Use History: None Reported Past Drug Use History: None Reported - Past Family History Mother Family Medical History: Diabetes Mellitus, Hypertension, Thyroid Disorder Additional Family Medical History / Comment(s): Crest syndrome, scleroderma, bypass, pacemaker, double amputee. Father Family Medical History: Diabetes Mellitus, Hypertension Additional Family Medical History / Comment(s): Varicose veins. Medications and Allergies Home Medications Medication Instructions Recorded Confirmed Type Losartan/Hydrochlorothiazide 1 tab PO DAILY 08/18/22 02/08/24 History [Losartan-Hctz 100-25 mg Tab] Testosterone Cypionate 200 mg IM Q14D 08/18/22 02/08/24 History [Depo-Testosterone] Garlique 1 tab PO DAILY 02/08/24 02/08/24 History Multivitamins, Thera [Multivitamin 1 tab PO DAILY 02/08/24 02/08/24 History (formulary)] Allergies Allergy/AdvReac Type Severity Reaction Status Date / Time hydrocodone [From Vicodin] AdvReac Nausea Verified 02/08/24 07:16 lisinopril AdvReac Cough Verified 02/08/24 07:16 Physical Exam Vitals: Vital Signs Temp Pulse Resp BP Pulse Ox 02/08/24 08:51 55 L 18 158/82 98 02/08/24 07:28 97.7 F 59 L 18 146/74 99 02/08/24 06:53 58 L 19 141/78 02/08/24 02:15 58 L 17 110/69 98 02/07/24 22:03 97.9 F 67 16 136/80 97 02/07/24 17:27 98.1 F 84 16 159/82 99 Intake and Output 02/07/24 02/08/24 02/08/24 22:59 06:59 14:59 Other: Weight 136.078 kg General appearance: The patient is alert, oriented, appears in no acute distress. HET: Head is normocephalic and atraumatic. Conjunctiva pink. Sclera anicteric. Neck: Supple without lymphadenopathy. Trachea midline. Heart: Regular. Lungs: Equal expansion, normal respiratory effort. Abdomen: Soft, nontender, nondistended. Skin: No rashes. Mild jaundice. Extremities: Normal skin color and turgor. No pedal edema. Neurological: No focal deficits. Alert and oriented x3. Results CBC & Chem 7: 02/08/24 06:51 02/08/24 06:51 Labs: Abnormal Lab Results - Last 24 Hours (Table) 02/07/24 02/07/24 02/07/24 Range/Units 19:15 19:15 19:15 Hgb 17.7 H (13.0-17.5) gm/dL MCV 100.9 H (80.0-100.0) fL Plt Count 117 L (150-450) k/uL Chloride 96 L (98-107) mmol/L Carbon Dioxide 34 H (22-30) mmol/L BUN 21 H (9-20) mg/dL Glucose 112 H (74-99) mg/dL Total Bilirubin 3.4 H (0.2-1.3) mg/dL AST 237 H (17-59) U/L ALT 248 H (4-49) U/L Alkaline Phosphatase 136 H (38-126) U/L Albumin 5.1 H (3.5-5.0) g/dL Ur Leukocyte Esterase Large H (Negative) Urine Mucus Rare H (None) /hpf Comments: Gallbladder ultrasound reports cholelithiasis with positive sonographic Rosario sign correlate for acute cholecystitis. The wall is within normal limits for size. Assessment and Plan (1) Transaminitis Narrative/Plan: 53-year-old coming in with abdominal pain in the epigastric right upper quadrant region associated with nausea and vomiting as well as elevated LFTs and bilirubin. Gallbladder ultrasound concerning for acute cholecystitis with multiple gallstones and mildly dilated CBD 0.8 cm. This is in a patient with previous elevated LFTs being followed by his primary care physician for fatty liver. Possible etiology choledocholithiasis however need to consider that stone possibly passed as patient's abdominal pain has subsided and no abdominal tenderness. Will wait for repeat labs and order MRCP. Current Visit: Yes Status: Acute Code(s): R74.01 - ELEVATION OF LEVELS OF LIVER TRANSAMINASE LEVELS SNOMED Code(s): 288783594 (2) Hyperbilirubinemia Current Visit: Yes Status: Acute Code(s): E80.6 - OTHER DISORDERS OF BILIRUBIN METABOLISM SNOMED Code(s): 42424600 (3) Acute cholecystitis Current Visit: Yes Status: Acute Code(s): K81.0 - ACUTE CHOLECYSTITIS SNOMED Code(s): 60090275 (4) Thrombocytopenia Current Visit: Yes Status: Acute Code(s): D69.6 - THROMBOCYTOPENIA, UNSPECIFIED SNOMED Code(s): 860212630 (5) Cholelithiasis Current Visit: Yes Status: Acute Code(s): K80.20 - CALCULUS OF GALLBLADDER W/O CHOLECYSTITIS W/O OBSTRUCTION SNOMED Code(s): 383791255 Plan: 1. Continue symptomatic and supportive care 2. Keep n.p.o., patient may have clear liquid diet after MRCP 3. Repeat CBC, CMP today and in morning 4. Stat INR 5. Hold anticoagulation 6. MRCP ordered 7. Antiemetics as needed 8. Pain medication as needed 9. Continue with recommendations from general surgery 10. Further recommendations forthcoming based on clinical course Thank you for this consultation, we will continue to follow. Dr. Aaron Lance I agree with the dictator's note, documented as a scribe by Asuncion Michelle.
[2024-02-08 13:00] LABS: HCT 42.3 % (39.6-50.0); HGB 14.6 g/dL (13.0-17.0); Immature Platelet Fraction 8.8 % (1.1-6.1); MCH 35.1 pg (27.0-32.0); MCHC 34.5 g/dL (32.0-37.0); MCV 101.7 FL (80.0-97.0); Mean Platelet Volume 13.2 FL (9.5-12.2); NRBC Per 100 WBC 0 X 10*3/uL (0.00-0.01); Platelet Count 79 X 10*3/uL (140-440); RBC 4.16 X 10*6/uL (4.40-5.60); RDW 13.5 % (11.5-14.5); WBC 4.61 X 10*3/uL (4.50-10.00)
[2024-02-08 13:01] LABS: Basophils # (A) 0.02 X 10*3/uL (0.00-0.10); Basophils % (A) 0.4 %; Eosinophils # (A) 0.09 X 10*3/uL (0.04-0.35); Lymphocytes # (A) 0.98 X 10*3/uL (0.90-5.00); Lymphocytes % (A) 21.3 %; Monocytes # (A) 0.53 X 10*3/uL (0.20-1.00); Monocytes % (A) 11.5 %; Neutrophils # (A) 2.98 X 10*3/uL (1.80-7.70); Neutrophils % (A) 64.6 %
--- NOTE | 2024-02-08 16:37 | P.PN ---
Subjective Progress Note Date: 02/08/24 Hospital course: Patient is a very pleasant 53-year-old male with a past medical history of hypertension and obstructive sleep apnea. He presented to the hospital on 02/07/2024 with a chief complaint of abdominal pain. Upon arrival to our facility, patient underwent evaluation in the emergency department. Vital signs upon arrival show blood pressure 159/82, heart rate 84, respiratory rate 16, temp 98.1 F, and SpO2 of 99% on room air. EKG was completed showing normal sinus rhythm 84 bpm with T wave inversion in inferior leads III and aVF. Labs were completed and reviewed. CBC showing macrocytosis with MCV of 100.9 and thrombocytopenia with platelet count of 117. BMP showing non-anion gap metabolic alkalosis with chloride of 96, bicarb of 34, and anion gap of 10 with mild prerenal azotemia with BUN of 21. Blood glucose was 112. Liver profile sh owing hyperbilirubinemia with total bili of 3.4 and transaminitis with AST of 237, ALT of 248, and alkaline phosphatase of 136. Amylase and lipase normal findings. Urinalysis positive for leukocyte Estrace otherwise normal findings. Abdominal ultrasound showing cholelithiasis with positive sonographic Rosario sign consistent with acute cholecystitis. Patient admitted under our services with consultation to general surgery. Physical exam: Patient seen and fully evaluated at bedside this morning. He reports improvement of right upper quadrant pain with current pain medication regimen. Patient denies having any nausea, vomiting, or any other complaints at this time. Vital signs reviewed and stable. General: Nontoxic, no distress and appears stated age. Derm: Skin warm and dry, normal coloration for ethnicity. Head: Atraumatic, normocephalic and symmetric. Eyes: EOM's intact, no lid lag, and anicteric sclera Mouth: no lip lesions, mucus membranes moist Cardiovascular: regular rate and rhythm with normal S1S2, no murmur, positive posterior tibial pulses bilaterally, and cap refill < 2 seconds. Lungs: Respirations even, regular, and unlabored on room air. Lungs CTA bilaterally, no rhonchi, no rales, no wheezing, and no accessory muscle usage. Abdominal: soft, nontender to palpation, no guarding, no appreciable organomegaly Ext: ROM intact. No gross muscle atrophy, no edema, no contractures Neuro: Speech clear, face symmetrical and CN II-XII grossly intact with no noted focal neuro deficits Psych: Alert and oriented to person, place, time, and situation. Appropriate and pleasant affect. Assessment and Plan of Care: Choledocholithiasis with acute cholecystitis Transaminitis , rule out ascending cholangitis -Gastroenterology consulted, discussed case with gastroenterology [employer]CHO[employer]DC[employer] ATTENDANT stating plan to take patient for MRCP later today. -General Surgery consulted -NPO pending further recommendations from general surgery and gastroenterology. -Continue IV antibiotics with Zosyn 3.375 g IVPB every 8 hours. -Follow-up on blood cultures. -Tylenol 650 mg every 6 hours as needed for mild pain/fever, Toradol 15 mg IVP every 6 hours as needed for moderate pain and Dilaudid 1 mg every 3 hours as needed for severe pain. -Zofran 4 mg IVP every 8 hours as needed for nausea and/or vomiting. -Continue gentle IV fluid hydration with 0.9% normal saline at 100 cc/h. Hypertension Continue losartan/hydrochlorothiazide 50-12.5 mg tablets twice daily JUANJO Resume home CPAP nightly and while napping. Data and imaging reviewed: Morning labs completed and reviewed. CBC showing macrocytosis with MCV of 101.7 and MCH of 35.1 and worsening thrombocytopenia with platelet count of 79. BMP unremarkable. Liver profile showing improvement of total bili from 3.4 down to 1.2 and continued transaminitis with AST of 234, ALT of 321, and alk phos of 125. Vital signs reviewed. Blood pressure 146/74, heart rate 59, respiratory rate 18, temp 97.7 F, and SpO2 of 99% on room air. CODE STATUS: Full code DVT prophylaxis: SCDs Anticipated discharge date: Pending clinical course Anticipated discharge place: Home Patient was seen independently by Nurse Pracitioner. This document was prepared using [employer] dictation software. Please allow for errors in licensed psychologist manager, while rare they do occur. .Ralph Boyle [employer] ATTENDANT rendered care for this patient independently, reviewed the findings and plan as documented in the note above. I did not physically speak with or examine the patient on this date. Objective - Vital Signs Vital signs: Vital Signs Temp 97.7 F 02/08/24 07:28 Pulse 55 L 02/08/24 08:51 Resp 18 02/08/24 08:51 BP 158/82 02/08/24 08:51 Pulse Ox 98 02/08/24 08:51 FiO2 Intake & Output 02/07/24 02/08/24 02/08/24 18:59 06:59 18:59 Weight 136.078 kg - Labs CBC & Chem 7: 02/09/24 03:17 02/09/24 03:17 Labs: Abnormal Lab Results - Last 24 Hours (Table) 02/07/24 02/07/24 02/07/24 Range/Units 19:15 19:15 19:15 Hgb 17.7 H (13.0-17.5) gm/dL MCV 100.9 H (80.0-100.0) fL Plt Count 117 L (150-450) k/uL Chloride 96 L (98-107) mmol/L Carbon Dioxide 34 H (22-30) mmol/L BUN 21 H (9-20) mg/dL Glucose 112 H (74-99) mg/dL Total Bilirubin 3.4 H (0.2-1.3) mg/dL AST 237 H (17-59) U/L ALT 248 H (4-49) U/L Alkaline Phosphatase 136 H (38-126) U/L Albumin 5.1 H (3.5-5.0) g/dL Ur Leukocyte Esterase Large H (Negative) Urine Mucus Rare H (None) /hpf
--- NOTE | 2024-02-08 16:38 | MR ---
EXAMINATION TYPE: MR MRCP DATE OF EXAM: 02/08/2024 4:16 PM CLINICAL INDICATION: Male, 53 years old with history of Transaminitis, hyperbilirubinemia, cholelithi asis; PHH, Transaminitis, hyperbilirubinemia, cholelithiasis, evaluate for CBD stone/obstruction. COMPARISON: 02/07/2024 TECHNIQUE: Multi planar, T2-weighted imaging with and without fat saturation and chemical shift imag ing was performed of the abdomen. Then, heavily T2 weighted imaging (half-Fourier acquisition single- shot turbo spin-echo) was utilized in order to study the biliary system. Maximum intensity projectio n images were reconstructed from the original data of the biliary tree. 3D images were created on a [employer] work station. No Gadolinium given. FINDINGS: Lower Thorax: No evidence for acute process. Heart is mildly enlarged for size. MRCP: * The intrahepatic ducts have a normal appearance. * The extrahepatic ducts have a normal appearance. * The common hepatic duct measures 7 mm in size. * The common bile duct at the level of the pancreatic head measures 7 mm in size. * The pancreatic duct is normal. * The gallbladder demonstrates multiple low T1-2 signal gallstones.. Abdomen: Liver: No evidence for hepatic steatosis or cirrhosis. Pancreas: No ductal dilation. No evidence for solid mass. Spleen: Enlarged measuring up to 14.5 cm Adrenal glands: Unremarkable. Kidneys: No evidence for obstructive uropathy. No suspicious renal masses. Stomach and Bowel: No evidence for bowel wall thickening or evidence for obstruction. Retroperitoneum/Peritoneum: No evidence of pneumoperitoneum or free fluid. Vasculature: No aortic aneurysm. Musculoskeletal: The osseous structures appear intact. Lymph Nodes: No gross evidence for lymphadenopathy. Abdominal wall: Unremarkable. IMPRESSION: 1. No evidence to suggest ductal stricture, choledocholithiasis, or biliary ductal dilatation. 2. Cholelithiasis. 3. Mild splenomegaly. [facility], , 02/08/2024 4:35 PM
[2024-02-09 08:34] LABS: Basophils # (A) 0.02 X 10*3/uL (0.00-0.10); Basophils % (A) 0.4 %; Eosinophils % (A) 1.8 %; HCT 43.5 % (39.6-50.0); HGB 14.9 g/dL (13.0-17.0); Lymphocytes # (A) 1.15 X 10*3/uL (0.90-5.00); Lymphocytes % (A) 20.8 %; MCH 33.7 pg (27.0-32.0); MCHC 34.3 g/dL (32.0-37.0); MCV 98.4 FL (80.0-97.0); Mean Platelet Volume 12.9 FL (9.5-12.2); Monocytes # (A) 0.43 X 10*3/uL (0.20-1.00); Monocytes % (A) 7.8 %; NRBC Per 100 WBC 0 X 10*3/uL (0.00-0.01); Neutrophils % (A) 68.7 %; Platelet Count 81 X 10*3/uL (140-440); RBC 4.42 X 10*6/uL (4.40-5.60); RDW 13.4 % (11.5-14.5); WBC 5.53 X 10*3/uL (4.50-10.00)
--- NOTE | 2024-02-09 08:39 | P.PN ---
Subjective Progress Note Date: 02/09/24 Principal diagnosis: cholecystitis, elevated LFTs This a pleasant 53-year-old male who presented to the emergency department with complaints of epigastric and right upper quadrant abdominal pain associated with nausea and vomiting. Patient was out of town over the weekend and day had some fried foods and following that he had epigastric pain. He had tried taking some Tums. No and improvement in symptoms he was traveling home with severe abdominal pain followed by nausea and vomiting. He reports most of the abdominal pain in the epigastric region did go a little to the right side no real pain in his back. He had labs done and was noted to have elevated LFTs and bilirubin, underwent gallbladder ultrasound reporting CBD dilation, cholelithiasis correlate for acute cholecystitis. There was multiple gallstones in the gallbladder. Patient does have a history of obesity, elevated LFTs and has been recently diagnosed in monitor for fatty liver disease, GERD, t hrombocytopenia and hypertension. Patient states he has had thrombocytopenia for many years, no formal workup. Gastroenterology consulted for possible choledocholithiasis. Patient denies any abdominal pain currently, no nausea or vomiting. He has been afebrile. Admitting labs WBC 7.1 hemoglobin 17.7 hematocrit 52 platelet count 117,000 INR 1.0 sodium 140 potassium 3.7 BUN 21 creatinine 1.03 total bilirubin 3.4 AST 237 ALT 248 alkaline phosphatase 136 amylase 58 lipase 189. Today's labs are currently pending. 02/09/2024 Patient seen and examined today as a follow-up. Abdominal pain is improved. Repeat labs are currently pending. Patient went for an MRCP yesterday that shows no evidence of CBD stricture, choledocholithiasis or obstruction. He denies any nausea or vomiting. Objective - Vital Signs Vital signs: Vital Signs Temp 97.4 F L 02/09/24 06:53 Pulse 59 L 02/09/24 06:53 Resp 18 02/09/24 06:53 BP 134/83 02/09/24 06:53 Pulse Ox 100 02/09/24 06:53 FiO2 Intake & Output 02/08/24 02/09/24 02/09/24 18:59 06:59 18:59 Weight 136.078 kg - Exam General appearance: The patient is alert, oriented, appears in no acute distress. HET: Head is normocephalic and atraumatic. Conjunctiva pink. Sclera anicteric. Neck: Supple without lymphadenopathy. Abdomen: Soft, nontender, nondistended.. Extremities: Normal skin color and turgor. No pedal edema Skin: No rashes, no jaundice Neurological: No focal deficits. Alert and oriented. - Labs CBC & Chem 7: 02/09/24 03:17 02/08/24 06:51 Labs: Abnormal Lab Results - Last 24 Hours (Table) 02/08/24 02/08/24 Range/Units 06:51 06:51 RBC 4.16 L (4.40-5.60) X 10*6/uL MCV 101.7 H (80.0-97.0) FL MCH 35.1 H (27.0-32.0) pg Plt Count 79 L (140-440) X 10*3/uL MPV 13.2 H (9.5-12.2) FL Immature Plt Fraction 8.8 H (1.1-6.1) % Calcium 8.5 L (8.7-10.3) mg/dL AST 234 H (14-35) U/L ALT 321 H (10-49) U/L Total Protein 5.2 L (6.2-8.2) g/dL Albumin 3.7 L (3.8-4.9) g/dL Globulin 1.5 L (1.6-3.3) g/dL Assessment and Plan (1) Transaminitis Narrative/Plan: 53-year-old coming in with abdominal pain in the epigastric right upper quadrant region associated with nausea and vomiting as well as elevated LFTs and bilirubin. Gallbladder ultrasound concerning for acute cholecystitis with multiple gallstones and mildly dilated CBD 0.8 cm. This is in a patient with previous elevated LFTs being followed by his primary care physician for fatty liver. Possible etiology choledocholithiasis however need to consider that stone possibly passed as patient's abdominal pain has subsided and no abdominal tenderness. Will wait for repeat labs and order MRCP. MRCP completed and reviewed with no evidence of choledocholithiasis, CBD stricture or obstruction. Today's labs are currently pending. There is no i ndication for any gastroenterology intervention no ERCP indicated. Current Visit: Yes Status: Acute Code(s): R74.01 - ELEVATION OF LEVELS OF LIVER TRANSAMINASE LEVELS SNOMED Code(s): 326563534 (2) Hyperbilirubinemia Current Visit: Yes Status: Acute Code(s): E80.6 - OTHER DISORDERS OF BILIRUBIN METABOLISM SNOMED Code(s): 85583564 (3) Acute cholecystitis Narrative/Plan: Will defer to surgical services. Discussed with there physician certified teacher assistant no evidence of choledocholithiasis and no ERCP indicated. Current Visit: Yes Status: Acute Code(s): K81.0 - ACUTE CHOLECYSTITIS SNOMED Code(s): 33502043 (4) Thrombocytopenia Narrative/Plan: Patient reports chronic thrombocytopenia unclear etiology. Consider hematology consultation. Current Visit: Yes Status: Acute Code(s): D69.6 - THROMBOCYTOPENIA, UNSPECIFIED SNOMED Code(s): 023328228 (5) Cholelithiasis Current Visit: Yes Status: Acute Code(s): K80.20 - CALCULUS OF GALLBLADDER W/O CHOLECYSTITIS W/O OBSTRUCTION SNOMED Code(s): 271231694 Plan: 1. Continue symptomatic and supportive care 2. Keep n.p.o until general surgery sees patient 3. MRCP ordered and reviewed. There is no indication for ERCP or other gastroenterology intervention 4. Continue with recommendations from general surgery Thank you for this consultation, we will continue to follow. Dr. Aaron Lance I agree with the dictator's note, documented as a scribe by Asuncion Michelle.
[2024-02-09] MEDS: PROCHLORPERAZINE INJ 10 MG/2 ML VIAL IVP STA (10:26)
[2024-02-09 10:34] LABS: BUN/Creat Ratio 12.36 Ratio (12.00-20.00); Blood Urea Nitrogen 13.6 mg/dL (9.0-27.0); Calcium 8.9 mg/dL (8.7-10.3); Carbon Dioxide 26.1 mmol/L (21.6-31.8); Chloride 106 mmol/L (96-109); Glucose 79 mg/dL (70-110); Potassium 4.1 mmol/L (3.5-5.5); Sodium 142 mmol/L (135-145)
[2024-02-09 10:35] LABS: ALT 253 U/L (10-49); AST 92 U/L (14-35); Albumin 3.8 g/dL (3.8-4.9); Albumin/Globulin Ratio 2.38 Ratio (1.60-3.17); Alkaline Phosphatase 108 U/L (41-126); Bilirubin, Conjugated 0.49 mg/dL (0.20-0.40); Bilirubin,Unconjugated 0.91 mg/dL (0.20-1.00); Globulin 1.6 g/dL (1.6-3.3); Total Bilirubin 1.4 mg/dL (0.3-1.2); Total Protein 5.4 g/dL (6.2-8.2)
[2024-02-09] MEDS: IV FLUID CONTINUATION 1,000 ML IV ONE (13:29)
[2024-02-09] MEDS: DEXAMETHASONE SOD PHOSPHATE 4 MG/ML 1 ML VIAL IVP STA (13:41)
[2024-02-09] MEDS: ONDANSETRON 4 MG/2 ML VIAL IVP PRN (13:41)
--- NOTE | 2024-02-09 14:15 | P.PN ---
Subjective Progress Note Date: 02/09/24 Hospital course: Patient is a very pleasant 53-year-old male with a past medical history of hypertension and obstructive sleep apnea. He presented to the hospital on 02/07/2024 with a chief complaint of abdominal pain. Upon arrival to our facility, patient underwent evaluation in the emergency department. Vital signs upon arrival show blood pressure 159/82, heart rate 84, respiratory rate 16, temp 98.1 F, and SpO2 of 99% on room air. EKG was completed showing normal sinus rhythm 84 bpm with T wave inversion in inferior leads III and aVF. Labs were completed and reviewed. CBC showing macrocytosis with MCV of 100.9 and thrombocytopenia with platelet count of 117. BMP showing non-anion gap metabolic alkalosis with chloride of 96, bicarb of 34, and anion gap of 10 with mild prerenal azotemia with BUN of 21. Blood glucose was 112. Liver profile sh owing hyperbilirubinemia with total bili of 3.4 and transaminitis with AST of 237, ALT of 248, and alkaline phosphatase of 136. Amylase and lipase normal findings. Urinalysis positive for leukocyte Estrace otherwise normal findings. Abdominal ultrasound showing cholelithiasis with positive sonographic Rosario sign consistent with acute cholecystitis. Patient admitted under our services with consultation to general surgery. Physical exam: Patient seen and fully evaluated at bedside this morning. Reports only mild discomfort in right upper quadrant but states pain is more towards his back and is accompanied by significant nausea this morning. Orders placed for Compazine 10 mg IVP x 1 dose in addition to current medication regimen. Vital signs reviewed and stable. General: Nontoxic, no distress and appears stated age. Derm: Skin warm and dry, normal coloration for ethnicity. Head: Atraumatic, normocephalic and symmetric. Eyes: EOM's intact, no lid lag, and anicteric sclera Mouth: no lip lesions, mucus membranes moist Cardiovascular: regular rate and rhythm with normal S1S2, no murmur, positive posterior tibial pulses bilaterally, and cap refill < 2 seconds. Lungs: Respirations even, regular, and unlabored on room air. Lungs CTA bilaterally, no rhonchi, no rales, no wheezing, and no accessory muscle usage. Abdominal: soft, nontender to palpation, no guarding, no appreciable organomegaly Ext: ROM intact. No gross muscle atrophy, no edema, no contractures Neuro: Speech clear, face symmetrical and CN II-XII grossly intact with no noted focal neuro deficits Psych: Alert and oriented to person, place, time, and situation. Appropriate and pleasant affect. Assessment and Plan of Care: Choledocholithiasis with acute cholecystitis Transaminitis , rule out ascending cholangitis -Gastroenterology consulted, discussed case with gastroenterology WILDLIFE VETERINARIAN stating MRCP negative and patient cleared from gastroenterology's perspective to proceed with laparoscopic cholecystectomy with general surgery.. -General Surgery following, planning to take patient for laparoscopic cholecystectomy later today. -NPO pending completion of surgical procedure and diet to be advanced as recommended per general surgeon. -Continue IV antibiotics with Zosyn 3.375 g IVPB every 8 hours. -Blood cultures showing no growth to date -Tylenol 650 mg every 6 hours as needed for mild pain/fever, Toradol 15 mg IVP every 6 hours as needed for moderate pain and Dilaudid 1 mg every 3 hours as needed for severe pain. -Zofran 4 mg IVP every 8 hours as needed for nausea and/or vomiting. -Continue gentle IV fluid hydration with 0.9% normal saline at 100 cc/h. Hypertension Continue losartan/hydrochlorothiazide 50-12.5 mg tablets twice daily JUANJO Resume home CPAP nightly and while napping. Data and imaging reviewed: Morning labs completed and reviewed. CBC showing thrombocytopenia with platelet count of 81,000 and macrocytosis with MCV of 98.4. BMP unremarkable. Liver profile showing elevated total bili of 1.4, conjugated bilirubin of 0.49, AST of 92, ALT of 253, and alkaline phosphatase of 108. Vital signs reviewed. Blood pressure 134/83, heart rate 59, respiratory rate 18, temp 97.4 F, and SpO2 100% on room air. CODE STATUS: Full code DVT prophylaxis: SCDs Anticipated discharge date: Pending clinical course Anticipated discharge place: Home Patient was seen independently by Nurse Pracitioner. This document was prepared using [employer] dictation software. Please allow for errors in slurry man, while rare they do occur. .Ralph Boyle WILDLIFE VETERINARIAN rendered care for this patient independently, reviewed the findings and plan as documented in the note above. I did not physically speak with or examine the patient on this date. Objective - Vital Signs Vital signs: Vital Signs Temp 97.4 F L 02/09/24 06:53 Pulse 59 L 02/09/24 06:53 Resp 18 02/09/24 06:53 BP 134/83 02/09/24 06:53 Pulse Ox 100 02/09/24 06:53 FiO2 Intake & Output 02/08/24 02/09/24 02/09/24 18:59 06:59 18:59 Weight 136.078 kg - Labs CBC & Chem 7: 02/09/24 03:17 02/09/24 03:17 Labs: Abnormal Lab Results - Last 24 Hours (Table) 02/08/24 02/08/24 Range/Units 06:51 06:51 RBC 4.16 L (4.40-5.60) X 10*6/uL MCV 101.7 H (80.0-97.0) FL MCH 35.1 H (27.0-32.0) pg Plt Count 79 L (140-440) X 10*3/uL MPV 13.2 H (9.5-12.2) FL Immature Plt Fraction 8.8 H (1.1-6.1) % Calcium 8.5 L (8.7-10.3) mg/dL AST 234 H (14-35) U/L ALT 321 H (10-49) U/L Total Protein 5.2 L (6.2-8.2) g/dL Albumin 3.7 L (3.8-4.9) g/dL Globulin 1.5 L (1.6-3.3) g/dL
[2024-02-09] MEDS ORDERED: NEOSTIGMINE 1 MG/ML 10 ML VIAL ONE (16:21)
[2024-02-09] MEDS ORDERED: ROCURONIUM 10 MG/ML (5 ML VIAL) IV ONE (16:21)
[2024-02-09] MEDS ORDERED: HYDROmorphone (PF) 1 MG/ML ONE (16:21)
[2024-02-09] MEDS ORDERED: PROPOFOL 10 MG/ML 20 ML VIAL IV ONE (16:21)
[2024-02-09] MEDS ORDERED: fentaNYL (PF) 50 MCG/ML 2 ML AMP ONE (16:21)
[2024-02-09] MEDS ORDERED: ceFAZolin 1 GM/50 ML BAG (PMX) ONE (16:21)
[2024-02-09] MEDS ORDERED: SUCCINYLCHOLINE CHLORIDE 200 MG/10 ML VIAL IV ONE (16:21)
[2024-02-09] MEDS ORDERED: LIDOCAINE 1% INJ 10MG/ML (20 ML MDV) ONE (16:21)
[2024-02-09] MEDS ORDERED: MIDAZOLAM 2 MG/2 ML VIAL ONE (16:21)
[2024-02-09] MEDS ORDERED: GLYCOPYRROLATE 0.2 MG/ML 2 ML VIAL ONE (16:21)
[2024-02-09] MEDS: SODIUM CHLORIDE 0.9% 100 ML with ceFAZolin 3,000 MG IV ONE (16:26)
[2024-02-09] MEDS: LIDOCAINE 1%-EPI 1:100,000 20 ML VIAL SQ ONE (16:59)
[2024-02-09] MEDS: LACTATED RINGERS 1,000 ML IV ONE (17:24)
[2024-02-09] MEDS: HYDROmorphone 1 MG/ML 1 ML SYRINGE IVP PRN (18:22)
[2024-02-09] MEDS: HYDROmorphone 0.5 MG/0.5 ML SYRINGE IVP STA ×2 (18:41→19:02)
--- NOTE | 2024-02-09 22:41 | P.PN ---
Subjective Patient seen and evaluated at bedside. Patient admits to abd pain. Objective - Vital Signs Vital signs: Vital Signs Temp 97.8 F 02/09/24 19:55 Pulse 68 02/09/24 19:55 Resp 16 02/09/24 19:55 BP 135/73 02/09/24 19:55 Pulse Ox 95 02/09/24 19:55 FiO2 Intake & Output 02/09/24 02/09/24 02/10/24 06:59 18:59 06:59 Intake Total 1300 100 Output Total 20 200 Balance 1280 -100 Weight 136.078 kg Intake: IV 1300 100 Output: Urine 200 Estimated Blood Loss 20 - Exam gen; Nad cv: rrr pul: non labored breathing abd: soft,tender to palpation in right upper quadrant - Labs CBC & Chem 7: 02/09/24 03:17 02/09/24 03:17 Labs: Abnormal Lab Results - Last 24 Hours (Table) 02/09/24 02/09/24 Range/Units 03:17 03:17 MCV 98.4 H (80.0-97.0) FL MCH 33.7 H (27.0-32.0) pg Plt Count 81 L (140-440) X 10*3/uL MPV 12.9 H (9.5-12.2) FL Total Bilirubin 1.4 H (0.3-1.2) mg/dL Conjugated Bilirubin 0.49 H (0.20-0.40) mg/dL AST 92 H (14-35) U/L ALT 253 H (10-49) U/L Total Protein 5.4 L (6.2-8.2) g/dL Microbiology - Last 24 Hours (Table) 02/07/24 21:30 Blood Culture - Preliminary Blood Assessment and Plan Assessment: 53 yo male w/ acute cholecystitis -or today -stable for discharge on 02/08 providng hgb stable
[2024-02-10] MEDS: KETOROLAC 15 MG/ML 1 ML VIAL IVP PRN (01:26)
[2024-02-10 07:43] VITALS: BP 129/75; PULSE 68; RESP 16; TEMP 97.4
[2024-02-10 08:58] LABS: HCT 42.6 % (39.6-50.0); HGB 14.8 g/dL (13.0-17.0); MCH 34.1 pg (27.0-32.0); MCHC 34.7 g/dL (32.0-37.0); MCV 98.2 FL (80.0-97.0); Mean Platelet Volume 13.4 FL (9.5-12.2); NRBC Per 100 WBC 0 X 10*3/uL (0.00-0.01); Platelet Count 89 X 10*3/uL (140-440); RBC 4.34 X 10*6/uL (4.40-5.60); RDW 13.1 % (11.5-14.5); WBC 7.97 X 10*3/uL (4.50-10.00)
--- NOTE | 2024-02-10 10:55 | P.OP ---
Date of Procedure: 02/09/24 Preoperative Diagnosis: acute cholecystitis Postoperative Diagnosis: acute cholecystitis Procedure(s) Performed: robotic assisted cholecystectomy Anesthesia: SILVIOA Surgeon: Micheal Castillo Estimated Blood Loss (ml): 20 Pathology: other (gallbladder) Indications for Procedure: acute cholecystitis Operative Findings: acute cholecystitis Description of Procedure: Patient was brought to the operative suite where she was cleaned and draped in sterile fashion and everyone agreed with the information recited. Next a 5 mm incision was made in the left upper quadrant using a number 15 blade. A 5mm visiport was then used to gain acces to the abdomen. Next 3 more ports were placed in the mid and left upper quadrant. Next the 5mm port was then exchanged for an 8mm port. The robot was docked. The gallbladder was grasped and retracted cephalad. The fundus was grasped laterally. I started my dissection from lateral to medial taking the down the peritoneal attachments. I identified and skeletonized the cystic duct/artery obtaining my critical view of safety. The duct was then identified also by ICG. I then placed two clips proximally and one distally on the cystic duct and cystic artery. Both structures were ligated using electrocautery. The gallbladder was then removed off the gallbladder fossa in a controlled manner. After the gallbaldder was removed a hemostatic timeout was performed and no bleeding was observed. The gallbladder was removed out the patient using an endocatch bag. The instruments were removed under direct visualization. The left upper quadrant was then closed using a carterthomason device and the skin incisions were closed using 4-0 vicryl in an interrupted fashion. The patient tolerated the procedure well and was transferred to pacu in stable condition.
--- NOTE | 2024-02-10 11:31 | P.PN ---
Subjective Progress Note Date: 02/10/24 CHIEF COMPLAINT: Cholecystitis HISTORY OF PRESENT ILLNESS: Patient is postop day #1 status post laparoscopic cholecystectomy. Patient tolerated surgery well. His pain is controlled. He did have some bleeding from the mid incision. This has now resolved. He is tolerating diet. He has been up and ambulating. He is afebrile. Hemoglobin remained stable at 14.8. WBC 7.97 CMP pending PHYSICAL EXAM: VITAL SIGNS: Reviewed. GENERAL: Well-developed in no acute distress. ABDOMEN: Soft. Nondistended. Incision sites clean dry and intact. The mid incision some dried blood noted. The dressing was pulled back. No blood saturation through the dressing. NEUROLOGIC: Alert and oriented. Cranial nerves II through XII grossly intact. ASSESSMENT: 1. Acute cholecystitis status post laparoscopic cholecystectomy PLAN: -Patient is stable for discharge from surgical standpoint Physician Medical Staff Specialist note has been reviewed by physician. Signing provider agrees with the documented findings, assessment, and plan of care. Objective - Vital Signs Vital signs: Vital Signs Temp 97.4 F L 02/10/24 07:00 Pulse 68 02/10/24 07:00 Resp 16 02/10/24 07:00 BP 129/75 02/10/24 07:00 Pulse Ox 96 02/10/24 07:00 FiO2 Intake & Output 02/09/24 02/10/24 02/10/24 18:59 06:59 18:59 Intake Total 1300 100 118 Output Total 20 200 Balance 1280 -100 118 Intake: IV 1300 100 Oral 118 Output: Urine 200 Estimated Blood Loss 20 - Labs CBC & Chem 7: 02/10/24 02:22 02/09/24 03:17 Labs: Abnormal Lab Results - Last 24 Hours (Table) 02/10/24 Range/Units 02:22 RBC 4.34 L (4.40-5.60) X 10*6/uL MCV 98.2 H (80.0-97.0) FL MCH 34.1 H (27.0-32.0) pg Plt Count 89 L (140-440) X 10*3/uL MPV 13.4 H (9.5-12.2) FL Microbiology - Last 24 Hours (Table) 02/07/24 21:30 Blood Culture - Preliminary Blood
[2024-02-10 12:27] LABS: Magnesium 1.7 mg/dL (1.5-2.4)
[2024-02-10 12:45] LABS: ALT 190 U/L (10-49); AST 53 U/L (14-35); Albumin 3.9 g/dL (3.8-4.9); Albumin/Globulin Ratio 2.44 Ratio (1.60-3.17); Alkaline Phosphatase 102 U/L (41-126); Blood Urea Nitrogen 13.9 mg/dL (9.0-27.0); Calcium 8.5 mg/dL (8.7-10.3); Carbon Dioxide 20.7 mmol/L (21.6-31.8); Chloride 103 mmol/L (96-109); Globulin 1.6 g/dL (1.6-3.3); Glucose 124 mg/dL (70-110); Potassium 4.2 mmol/L (3.5-5.5); Sodium 138 mmol/L (135-145); Total Bilirubin 1.1 mg/dL (0.3-1.2); Total Protein 5.5 g/dL (6.2-8.2)
--- NOTE | 2024-02-10 12:56 | P.DS ---
Providers Date of admission: 02/07/24 20:54 Expected date of discharge: 02/10/24 Attending physician: Ilda Linares MD Consults: 02/07/24 20:54 Consult Physician Urgent Consulting Provider: Juan Burleson Consult Reason/Comments: cholecystitis Do you want consulting provider notified?: Yes Consult Physician Urgent Consulting Provider: Meghan Lance Consult Reason/Comments: choledocholithiasis Do you want consulting provider notified?: Yes, Notify in am Primary care physician: Markel [facility] Hospital Course: Discharge Diagnosis: Choledocholithiasis with acute cholecystitis. Gastroenterology elevated. Patient underwent MRCP which was negative and patient cleared from gastroenterology's perspective to proceed with laparoscopic cholecystectomy with general surgery.. General surgery took patient for laparoscopic cholecystectomy on 02/09/2024. Patient tolerated well. Day 1 postop and hyperbilirubinemia resolved and transaminitis improving. Patient cleared from general surgery perspective for discharge. Medically, patient is stable for discharge at this time. Patient to follow-up outpatient with PCP in 1 to 2 days and with general surgeon in 1 week. Hypertension. Continue losartan/hydrochlorothiazide 50-12.5 mg tablets twice daily JUANJO. Resume home CPAP nightly and while napping. Hospital course: Patient is a very pleasant 53-year-old male with a past medical history of hypertension and obstructive sleep apnea. He presented to the hospital on 02/07/2024 with a chief complaint of abdominal pain. Upon arrival to our facility, patient underwent evaluation in the emergency department. Vital signs upon arrival show blood pressure 159/82, heart rate 84, respiratory rate 16, temp 98.1 F, and SpO2 of 99% on room air. EKG was completed showing normal sin us rhythm 84 bpm with T wave inversion in inferior leads III and aVF. Labs were completed and reviewed. CBC showing macrocytosis with MCV of 100.9 and thrombocytopenia with platelet count of 117. BMP showing non-anion gap metabolic alkalosis with chloride of 96, bicarb of 34, and anion gap of 10 with mild prerenal azotemia with BUN of 21. Blood glucose was 112. Liver profile showing hyperbilirubinemia with total bili of 3.4 and transaminitis with AST of 237, ALT of 248, and alkaline phosphatase of 136. Amylase and lipase normal findings. Urinalysis positive for leukocyte Estrace otherwise normal findings. Abdominal ultrasound showing cholelithiasis with positive sonographic Rosario sign consistent with acute cholecystitis. Patient admitted under our services with consultation to general surgery. Gastroenterology elevated. Patient underwent MRCP which was negative and patient cleared from gastroenterology's perspective to proceed with laparoscopic cholecystectomy with general surgery.. General surgery took patient for laparoscopic cholecystectomy on 02/09/2024. Patient tolerated well. Day 1 postop and hyperbilirubinemia resolved and transaminitis improving. Patient cleared from general surgery perspective for discharge. Medically, patient is stable for discharge at this time. Patient to follow-up outpatient with PCP in 1 to 2 days and with general surgeon in 1 week. Physical exam: Vital signs reviewed and stable. General: Nontoxic, no distress and appears stated age. Derm: Skin warm and dry, normal coloration for ethnicity. Head: Atraumatic, normocephalic and symmetric. Eyes: EOM's intact, no lid lag, and anicteric sclera Mouth: no lip lesions, mucus membranes moist Cardiovascular: regular rate and rhythm with normal S1S2, no murmur, positive posterior tibial pulses bilaterally, and cap refill < 2 seconds. Lungs: Respirations even, regular, and unlabored on room air. Lungs CTA bilaterally, no rhonchi, no rales, no wheezing, and no accessory muscle usage. Abdominal: soft, nontender to palpation, no guarding, no appreciable organomegaly Ext: ROM intact. No gross muscle atrophy, no edema, no contractures Neuro: Speech clear, face symmetrical and CN II-XII grossly intact with no noted focal neuro deficits Psych: Alert and oriented to person, place, time, and situation. Appropriate and pleasant affect. A total of 36 minutes of time were spent preparing this complex discharge summary. Pt was discharged on 02/10/2024 at 12:55 PM. Patient was seen independently by Nurse Practitioner. This document was prepared using [employer] dictation software. Please allow for errors in format proofreader while rare they do occur. .Ralph Boyle NP rendered care for this patient independently, reviewed the findings and plan as documented in the note above. I did not physically speak with or examine the patient on this date Patient Condition at Discharge: Stable Plan - Discharge Summary Discharge Rx Participant: No New Discharge Prescriptions: New Acetaminophen Tab [Tylenol] 1,000 mg PO Q6HR PRN #30 tablet PRN Reason: Pain Continue Multivitamins, Thera [Multivitamin (formulary)] 1 tab PO DAILY Garlique 1 tab PO DAILY Testosterone Cypionate [Depo-Testosterone] 200 mg IM Q14D Losartan/Hydrochlorothiazide [Losartan-Hctz 100-25 mg Tab] 1 tab PO DAILY Discharge Medication List Losartan/Hydrochlorothiazide [Losartan-Hctz 100-25 mg Tab] 1 tab PO DAILY 08/18/22 [History] Testosterone Cypionate [Depo-Testosterone] 200 mg IM Q14D 08/18/22 [History] Garlique 1 tab PO DAILY 02/08/24 [History] Multivitamins, Thera [Multivitamin (formulary)] 1 tab PO DAILY 02/08/24 [History] Acetaminophen Tab [Tylenol] 1,000 mg PO Q6HR PRN #30 tablet 02/10/24 [Rx] Follow up Appointment(s)/Referral(s): Juan Burleson DO [Medical Doctor] - 1 Week (02/23/24 @ 0845am ) Markel Cabrera DO [Primary Care Provider] - 1-2 days Patient Instructions/Handouts: *Surgery [facility] - Laparoscopic Cholecystectomy Discharge Instructions, Laparoscopic Cholecystectomy (DC) Activity/Diet/Wound Care/Special Instructions: Activity: As tolerated. Take breaks as needed. No lifting greater than 10 lbs until further instructed by your surgeon on your follow up appointment next week. Diet: Low-fat diet Special Instructions: Please remember to keep all of your doctor's appointments and follow-up as needed. I look forward to seeing pictures of Chris and his new little friend!! <3 Thank you for allowing us to participate in your care, it was truly a pleasure having you for our patient!!! .. Discharge/Stand Alone Forms: Work/School Release, Work/School Release / Restrict Discharge Disposition: HOME SELF-CARE
--- NOTE | 2024-02-10 13:50 | P.PN ---
Subjective Progress Note Date: 02/10/24 Principal diagnosis: cholecystitis, elevated LFTs This a pleasant 53-year-old male who presented to the emergency department with complaints of epigastric and right upper quadrant abdominal pain associated with nausea and vomiting. Patient was out of town over the weekend and day had some fried foods and following that he had epigastric pain. He had tried taking some Tums. No and improvement in symptoms he was traveling home with severe abdominal pain followed by nausea and vomiting. He reports most of the abdominal pain in the epigastric region did go a little to the right side no real pain in his back. He had labs done and was noted to have elevated LFTs and bilirubin, underwent gallbladder ultrasound reporting CBD dilation, cholelithiasis correlate for acute cholecystitis. There was multiple gallstones in the gallbladder. Patient does have a history of obesity, elevated LFTs and has been recently diagnosed in monitor for fatty liver disease, GERD, t hrombocytopenia and hypertension. Patient states he has had thrombocytopenia for many years, no formal workup. Gastroenterology consulted for possible choledocholithiasis. Patient denies any abdominal pain currently, no nausea or vomiting. He has been afebrile. Admitting labs WBC 7.1 hemoglobin 17.7 hematocrit 52 platelet count 117,000 INR 1.0 sodium 140 potassium 3.7 BUN 21 creatinine 1.03 total bilirubin 3.4 AST 237 ALT 248 alkaline phosphatase 136 amylase 58 lipase 189. Today's labs are currently pending. 02/09/2024 Patient seen and examined today as a follow-up. Abdominal pain is improved. Repeat labs are currently pending. Patient went for an MRCP yesterday that shows no evidence of CBD stricture, choledocholithiasis or obstruction. He denies any nausea or vomiting. 1823 Patient seen and examined today as a follow-up. Yesterday he underwent laparoscopic cholecystectomy. States he is having some abdominal tenderness. Tolerating his diet. No nausea or vomiting. LFTs continue to improve. Total bilirubin 1.1 AST 53 ALT 190 alk phos 102 Objective - Vital Signs Vital signs: Vital Signs Temp 97.4 F L 02/10/24 07:00 Pulse 68 02/10/24 07:00 Resp 16 02/10/24 07:00 BP 129/75 02/10/24 07:00 Pulse Ox 96 02/10/24 07:00 FiO2 Intake & Output 02/09/24 02/10/24 02/10/24 18:59 06:59 18:59 Intake Total 1300 100 Output Total 20 200 Balance 1280 -100 Intake: IV 1300 100 Output: Urine 200 Estimated Blood Loss 20 - Exam General appearance: The patient is alert, oriented, appears in no acute distress. HET: Head is normocephalic and atraumatic. Conjunctiva pink. Sclera anicteric. Neck: Supple without lymphadenopathy. Abdomen: Soft, nontender, nondistended.. Extremities: Normal skin color and turgor. No pedal edema Skin: No rashes, no jaundice Neurological: No focal deficits. Alert and oriented. - Labs CBC & Chem 7: 02/10/24 02:22 02/10/24 02:22 Labs: Abnormal Lab Results - Last 24 Hours (Table) 02/09/24 02/09/24 Range/Units 03:17 03:17 MCV 98.4 H (80.0-97.0) FL MCH 33.7 H (27.0-32.0) pg Plt Count 81 L (140-440) X 10*3/uL MPV 12.9 H (9.5-12.2) FL Total Bilirubin 1.4 H (0.3-1.2) mg/dL Conjugated Bilirubin 0.49 H (0.20-0.40) mg/dL AST 92 H (14-35) U/L ALT 253 H (10-49) U/L Total Protein 5.4 L (6.2-8.2) g/dL Microbiology - Last 24 Hours (Table) 02/07/24 21:30 Blood Culture - Preliminary Blood Assessment and Plan (1) Transaminitis Narrative/Plan: 53-year-old coming in with abdominal pain in the epigastric right upper quadrant region associated with nausea and vomiting as well as elevated LFTs and bilirubin. Gallbladder ultrasound concerning for acute cholecystitis with multiple gallstones and mildly dilated CBD 0.8 cm. This is in a patient with previous elevated LFTs being followed by his primary care physician for fatty liver. Possible etiology choledocholithiasis however need to consider that stone possibly passed as patient's abdominal pain has subsided and no abdominal tenderness. Will wait for repeat labs and order MRCP. MRCP completed and reviewed with no evidence of choledocholithiasis, CBD stricture or obstruction. Today's labs are currently pending. There is no indication for any gastroenterology intervention no ERCP indicated. Current Visit: Yes Status: Acute Code(s): R74.01 - ELEVATION OF LEVELS OF LIVER TRANSAMINASE LEVELS SNOMED Code(s): 548409180 (2) Hyperbilirubinemia Current Visit: Yes Status: Acute Code(s): E80.6 - OTHER DISORDERS OF BILIRUBIN METABOLISM SNOMED Code(s): 32069252 (3) Acute cholecystitis Narrative/Plan: Patient is status post cholecystectomy. Current Visit: Yes Status: Acute Code(s): K81.0 - ACUTE CHOLECYSTITIS SNOMED Code(s): 94003304 (4) Thrombocytopenia Narrative/Plan: Patient reports chronic thrombocytopenia unclear etiology. Consider hematology consultation. Current Visit: Yes Status: Acute Code(s): D69.6 - THROMBOCYTOPENIA, UNSPECIFIED SNOMED Code(s): 270347241 (5) Cholelithiasis Current Visit: Yes Status: Acute Code(s): K80.20 - CALCULUS OF GALLBLADDER W/O CHOLECYSTITIS W/O OBSTRUCTION SNOMED Code(s): 118904400 Plan: 1. Continue symptomatic and supportive care 2. Diet as ordered 3. MRCP ordered and reviewed. There is no indication for ERCP or other gastroenterology intervention 4. Continue with recommendations from general surgery Thank you for this consultation, no further workup from gastroenterology. Patient is cleared from GI for discharge. We will sign off at this time. Dr. Aaron Lance I agree with the dictator's note, documented as a scribe by Asuncion Michelle.
[2024-02-10] MEDS: MAGNESIUM OXIDE 400 MG TAB PO STA (13:55)
== END 2024-02-10 14:05 | disposition home or self-care (01) | DRG 418 ==
LOC: EC 17:24 → 4SSUR 20:54 → 5NMEDONC 23:12 → 6NMEDSUR 02-08 20:06
PROVIDERS: ADMIT Internal Medicine; ATTEND Internal Medicine
PROC: 0FT44ZZ Resection of Gallbladder, Percutaneous Endoscopic Approach (ICD-10-PCS; principal; 2024-02-10)
PROC: 8E0W4CZ Robotic Assisted Procedure of Trunk Region, Percutaneous Endoscopic Approach (ICD-10-PCS; 2024-02-10)
DX: K80.62 Calculus of gallbladder and bile duct with acute cholecystitis without obstruction (principal); E87.3 Alkalosis; I10 Essential (primary) hypertension; G47.33 Obstructive sleep apnea (adult) (pediatric); D69.6 Thrombocytopenia, unspecified; Z88.5 Allergy status to narcotic agent; Z88.8 Allergy status to other drugs, medicaments and biological substances; D75.89 Other specified diseases of blood and blood-forming organs; K76.0 Fatty (change of) liver, not elsewhere classified; Z82.49 Family history of ischemic heart disease and other diseases of the circulatory system; Z83.3 Family history of diabetes mellitus; Z96.642 Presence of left artificial hip joint
CPT/HCPCS: 36415; 74181; 76705; 80048; 80053; 80076; 81001; 82150; 83605; 83690; 83735; 85025; 85027; 85610; 87040; 88304; 93005; 96361; 96365; 96366; 96375; 99285

== ENCOUNTER 2024-02-26 16:59 | Emergency (ER) | payer BC ==
[2024-02-26 17:55] LABS: Basophils % (A) 0 %; Eosinophils # (A) 0.2 k/uL (0-0.7); Eosinophils % (A) 3 %; HCT 47.4 % (39.0-53.0); HGB 16.2 gm/dL (13.0-17.5); Lymphocytes # (A) 1.4 k/uL (1.0-4.8); Lymphocytes % (A) 24 %; MCHC 34.2 g/dL (31.0-37.0); MCV 99.3 fL (80.0-100.0); Mean Platelet Volume 9.7; Monocytes # (A) 0.4 k/uL (0-1.0); Monocytes % (A) 7 %; Neutrophils # (A) 3.6 k/uL (1.3-7.7); Neutrophils % (A) 63 %; Platelet Count 116 k/uL (150-450); RBC 4.78 m/uL (4.30-5.90); RDW 12.8 % (11.5-15.5); WBC 5.7 k/uL (3.8-10.6)
[2024-02-26 18:06] LABS: ALT 33 U/L (4-49); AST 27 U/L (17-59); African American GFR (CKD) >90 (>60 ml/min/1.73 sqM); Albumin 4.2 g/dL (3.5-5.0); Alkaline Phosphatase 79 U/L (38-126); Amylase 47 U/L (30-110); Anion Gap 7 mmol/L; Blood Urea Nitrogen 19 mg/dL (9-20); Calcium 9.5 mg/dL (8.4-10.2); Carbon Dioxide 27 mmol/L (22-30); Chloride 102 mmol/L (98-107); Glucose 153 mg/dL (74-99); Lipase 130 U/L (23-300); Non-African American GFR(CKD) >90 (>60 ml/min/1.73 sqM); Potassium 3.8 mmol/L (3.5-5.1); Sodium 136 mmol/L (137-145); Total Protein 6.4 g/dL (6.3-8.2)
[2024-02-26 18:09] LABS: Partial Thromboplastin Time 23.1 sec (22.0-30.0); Prothrombin Time 11.2 sec (10.0-12.5)
[2024-02-26] MEDS: ONDANSETRON 4 MG/2 ML VIAL IVP STA (18:18)
[2024-02-26] MEDS: PANTOPRAZOLE 40 MG/10 ML VIAL IVP STA (18:18)
[2024-02-26] MEDS: SODIUM CHLORIDE 0.9% 1,000 ML IV STA (18:18)
[2024-02-26 18:28] VITALS: PULSE 68
[2024-02-26 18:28] LABS: Appearance,Urine Clear (Clear); Bilirubin,Urine Negative (Negative); Blood,Urine Negative (Negative); Color,Urine Light Yellow; Glucose,Urine (UA) Negative (Negative); Ketones,Urine Negative (Negative); Leukocyte Esterase,Urine Negative (Negative); Nitrite,Urine Negative (Negative); Protein,Urine Negative (Negative); Specific Gravity,Urine 1.016 (1.001-1.035); Urobilinogen,Urine <2.0 mg/dL (<2.0)
--- NOTE | 2024-02-26 19:07 | CT ---
EXAMINATION TYPE: CT abdomen pelvis w con DATE OF EXAM: 02/26/2024 COMPARISON: None INDICATION: Cholecystectomy x 3 weeks ago, non healing wound with pain DLP: 2888.8 mGycm, Automated exposure control for dose reduction was used. CONTRAST: 100 mL of Isovue 370. Study performed without Oral Contrast TECHNIQUE: Axial images were obtained from above the diaphragm to the pubic rami in the axial plane a t 5 mm thick sections. Reconstructed images are reviewed on the computer in the coronal plane. FINDINGS: Limited CT sections are obtained the lung bases. The lung bases are clear. CT ABDOMEN: There is increased density in the left anterior abdomen could be a approach for laparosco pic cholecystectomy. This thickening with mild inflammatory changes and infection could be considered . Underlying abscess is not identified at this time. Example image series 201 image 29 Liver: Normal Spleen: Normal Pancreas: Normal Adrenal glands: The adrenal glands are normal. Gallbladder: Surgically absent Kidneys: No masses are evident. No hydronephrosis is present. No cysts are present. There is a non obstructing 0.3 cm calcification posterior lateral right mid kidney Aorta: Normal Inferior vena cava: Normal. CT PELVIS: Beam hardening artifact from a left hip prosthesis limits pelvis. Loops of bowel within the abdomen and pelvis are normal. This study is without oral contrast limi ting bowel evaluation. Appendix: Normal as visualized. Urinary bladder: Normal. Genitourinary structures: Prostate contains calcification Osseous structures: No suspicious lytic or sclerotic lesions. IMPRESSION: 1. There may be infected approach from laparoscopic surgery in the left anterior abdomen. Correlate with the patient's wound. Underlying abscess is not identified. 2. Nonobstructing right renal stone [facility], Workstation: [facility], 02/26/2024 7:05 PM
--- NOTE | 2024-02-26 19:26 | ED ---
General Adult HPI - General Chief complaint: Abdominal Pain Stated complaint: post op comp Time Seen by Provider: 02/26/24 17:15 Source: patient, RN notes reviewed, old records reviewed Mode of arrival: ambulatory Limitations: no limitations - History of Present Illness Initial comments: Patient is a 53-year-old male who presents emergency department complaining of possible postop infection. Patient had laparoscopic cholecystectomy on [address] Castillo. Began having some purulent discharge from the central laparoscopic port over his central abdomen and was started on Keflex on February 23, 2024. Is currently February 26, 2024 and has noticed that the discharge has gotten worse. Still having yellow purulent drainage. Possible mild surrounding erythema. Called surgeon's office and instructed to come to the emergency department due to these continued symptoms. Denies fevers or chills. Denies chest pain. Endorses mild nausea. Presents for further evaluation at this time. - Related Data Home Medications Medication Instructions Recorded Confirmed Losartan/Hydrochlorothiazide 1 tab PO DAILY 08/18/22 02/08/24 [Losartan-Hctz 100-25 mg Tab] Testosterone Cypionate 200 mg IM Q14D 08/18/22 02/08/24 [Depo-Testosterone] Garlique 1 tab PO DAILY 02/08/24 02/08/24 Multivitamins, Thera [Multivitamin 1 tab PO DAILY 02/08/24 02/08/24 (formulary)] Previous Rx's Medication Instructions Recorded Acetaminophen Tab [Tylenol] 1,000 mg PO Q6HR PRN #30 tablet 02/10/24 Sulfamethox-Tmp 800-160Mg [Bactrim 1 tab PO Q12HR 7 Days #14 tab 02/26/24 DS 800-160 mg] Allergies Allergy/AdvReac Type Severity Reaction Status Date / Time hydrocodone [From Vicodin] AdvReac Nausea Verified 02/26/24 17:10 lisinopril AdvReac Cough Verified 02/26/24 17:10 Review of Systems ROS Statement: Those systems with pertinent positive or pertinent negative responses have been documented in the HPI. Review of Systems: CONST: Denies fever EYES: Denies blurry vision ENT: Denies nasal congestion C/V: Denies Chest pain RESP: Denies shortness of breath GI: Denies abdominal pain : Denies dysuria SKIN: Endorses purulent discharge from surgical incision. MSK: Denies joint pain. NEURO: Denies headache ROS Other: All systems not noted in ROS Statement are negative. Past Medical History Past Medical History: GERD/Reflux, Hypertension, Osteoarthritis (OA) Additional Past Medical History / Comment(s): Varicose veins, worse in left leg. History of Any Multi-Drug Resistant Organisms: None Reported Past Surgical History: Cholecystectomy, Ear Surgery, Joint Replacement, Tonsillectomy Additional Past Surgical History / Comment(s): Myringotomy, tubes in ears, left hip replacement, procedures to varicose veins left leg, colonoscopy X2. Past Anesthesia/Blood Transfusion Reactions: No Reported Reaction, Motion Sickness Past Psychological History: No Psychological Hx Reported Smoking Status: Never smoker Past Alcohol Use History: None Reported Past Drug Use History: None Reported - Past Family History Mother Family Medical History: Diabetes Mellitus, Hypertension, Thyroid Disorder Additional Family Medical History / Comment(s): Crest syndrome, scleroderma, byp ass, pacemaker, double amputee. Father Family Medical History: Diabetes Mellitus, Hypertension Additional Family Medical History / Comment(s): Varicose veins. General Exam - General Exam Comments Initial Comments: General: Appears in no acute distress. HEAD: Normal with no signs of head trauma. EYES: PERRLA, EOMI, conjunctiva normal, no discharge. ENT: Hearing grossly intact, normal oropharynx. RESPIRATORY: Clear breath sounds bilaterally. No wheezes, rales, or rhonchi. C/V: Regular rate and rhythm. S1 and S2 auscultated, no edema, peripheral pulses 2+ and intact throughout ABD: Abdomen soft, nondistended. No tenderness to palpation. Central midline abdominal laparoscopic surgical incision has yellow purulent discharge present with minimal surrounding erythema. EXT: Normal range of motion, no obvious deformity SKIN: Purulent drainage from the laparoscopic site on the central abdomen. NEURO: Alert and oriented x 4. Limitations: no limitations Course Vital Signs 02/26/24 02/26/24 02/26/24 17:05 17:27 18:24 Temperature 97.5 F L 98.2 F Pulse Rate 70 74 68 Respiratory 20 17 17 Rate Blood Pressure 134/86 145/86 158/77 O2 Sat by Pulse 99 99 96 Oximetry Medical Decision Making - Medical Decision Making Was pt. sent in by a medical professional or institution (, PA, MS SQL DBA, urgent care, hospital, or senior living...) When possible be specific @ -No Did you speak to anyone other than the patient for history (EMS, parent, family, police, friend...)? What history was obtained from this source @ -No Did you review nursing and triage notes (agree or disagree)? Why? @ -I reviewed and agree with nursing and triage notes Were old charts reviewed (outside hosp., previous admission, EMS record, old EKG, old radiological studies, urgent care reports/EKG's, senior living records)? Report findings @ -Reviewed chart from February 07, 2024 when patient had his prior surgery. Differential Diagnosis (chest pain, altered mental status, abdominal pain women, abdominal pain men, vaginal bleeding, weakness, fever, dyspnea, syncope, headache, dizziness, GI bleed, back pain, seizure, CVA, palpatations, mental health, musculoskeletal)? @ -Cellulitis, postop infection, postop pain. This list is not all inclusive. EKG interpreted by me (3pts min.). @ -As above X-rays interpreted by me (1pt min.). @ -None done CT interpreted by me (1pt min.). @ -CT abdomen pelvis reveals possible infected approach from the laparoscopic surgery in the left anterior abdomen with no obvious abscess present. U/S interpreted by me (1pt. min.). @ -None done What testing was considered but not performed or refused? (CT, X-rays, U/S, labs)? Why? @ -None What meds were considered but not given or refused? Why? @ -None Did you discuss the management of the patient with other professionals (professionals i.e. , PA, MS SQL DBA, lab, RT, psych nurse, professor of social work, loft worker pile driving, teacher, targeting acquisition officer, vocational case manager)? Give summary @ -Discussed with surgeon on-call Dr. Styles for that surgery group. He was in agreement plan for discharge, follow-up early next week and placing the patient on Bactrim in addition to the Keflex. Recommended patient call the surgeons office on Thursday and they can squeeze him in for an appointment. Agrees patient does not require admission at this time. Was smoking cessation discussed for >3mins.? @ -No Was critical care preformed (if so, how long)? @ -No Were there social determinants of health that impacted care today? How? (Homelessness, low income, unemployed, alcoholism, drug addiction, transportation, low edu. Level, literacy, decrease access to med. care, half-way, rehab)? @ -No Was there de-escalation of care discussed even if they declined (Discuss DNR or withdrawal of care, Hospice)? DNR status @ -No What co-morbidities impacted this encounter? (DM, HTN, Smoking, COPD, CAD, Cancer, CVA, ARF, Chemo, Hep., AIDS, mental health diagnosis, sleep apnea, morbid obesity)? @ -None Was patient admitted / discharged? Hospital course, mention meds given and route, prescriptions, significant lab abnormalities, going to OR and other pertinent info. @ -Patient presents for surgical site purulent discharge. He has been ongoing for the last week. Surgery was a month ago. Vitals are within acceptable limits. We will obtain basic labs, screen EKG. CT and pelvis also be obtained. Patient has been on Keflex for 3 days. Patient was in agreement this plan. Will be symptomatically treat with IV fluids, Protonix and Zofran. Laboratory studies are all within acceptable limits including lactic acid within normal limits and absence of leukocytosis. CT abdomen pelvis shows possibly an infected approach from that surgical site however no evidence of abscess at this time. No other obvious acute finding. I discussed the case with the on-call surgeon for Dr. Castillo's group Dr. Styles who was in agreement plan for discharge home and addition of Bactrim to his care. Recommended follow-up with the group early next week and patient can call them on Thursday. I discussed this with the patient who is in agreement this plan. Patient be given a dose of Bactrim prior to discharge. Strict return precautions discussed. I will provide the patient with a prescription for Bactrim. I instructed the patient to follow up with their PCP in the next 1-3 days. I provided contact information for follow up with Dr. Castillo. I explained that the patient should return to the emergency department if they experience any worsening symptoms. Strict return precautions were discussed with the patient. The patient expressed understanding of these instructions. I answered all questions that the patient had. The patient was discharged home in good condition with their prescriptions and follow up information. Undiagnosed new problem with uncertain prognosis? @ -No Drug Therapy requiring intensive monitoring for toxicity (Heparin, Nitro, Insulin, Cardizem)? @ -No Were any procedures done? @ -No Diagnosis/symptom? @ -Postop infection Acute, or Chronic, or Acute on Chronic? @ -Acute Uncomplicated (without systemic symptoms) or Complicated (systemic symptoms)? @ -Uncomplicated Side effects of treatment? @ -No Exacerbation, Progression, or Severe Exacerbation? @ -No Poses a threat to life or bodily function? How? (Chest pain, [place], [place], pneumonia, PE, COPD, DKA, ARF, appy, cholecystitis, CVA, Diverticulitis, Homicidal, Suicidal, threat to staff... and all critical care pts) @ -Unlikely - Lab Data Result diagrams: 02/26/24 17:40 02/26/24 17:40 Lab Results 02/26/24 02/26/24 02/26/24 Range/Units 17:40 17:40 17:40 WBC 5.7 (3.8-10.6) k/uL RBC 4.78 (4.30-5.90) m/uL Hgb 16.2 (13.0-17.5) gm/dL Hct 47.4 (39.0-53.0) % MCV 99.3 (80.0-100.0) fL MCH 34.0 (25.0-35.0) pg MCHC 34.2 (31.0-37.0) g/dL RDW 12.8 (11.5-15.5) % Plt Count 116 L (150-450) k/uL MPV 9.7 Neutrophils % 63 % Lymphocytes % 24 % Monocytes % 7 % Eosinophils % 3 % Basophils % 0 % Neutrophils # 3.6 (1.3-7.7) k/uL Lymphocytes # 1.4 (1.0-4.8) k/uL Monocytes # 0.4 (0-1.0) k/uL Eosinophils # 0.2 (0-0.7) k/uL Basophils # 0.0 (0-0.2) k/uL PT 11.2 (10.0-12.5) sec INR 1.0 (<1.2) APTT 23.1 (22.0-30.0) sec Sodium 136 L (137-145) mmol/L Potassium 3.8 (3.5-5.1) mmol/L Chloride 102 (98-107) mmol/L Carbon Dioxide 27 (22-30) mmol/L Anion Gap 7 mmol/L BUN 19 (9-20) mg/dL Creatinine 0.86 (0.66-1.25) mg/dL Est GFR (CKD-EPI)AfAm >90 (>60 ml/min/1.73 sqM) Est GFR (CKD-EPI)NonAf >90 (>60 ml/min/1.73 sqM) Glucose 153 H (74-99) mg/dL Plasma Lactic Acid Mathew (0.7-2.0) mmol/L Calcium 9.5 (8.4-10.2) mg/dL Total Bilirubin 1.0 (0.2-1.3) mg/dL AST 27 (17-59) U/L ALT 33 (4-49) U/L Alkaline Phosphatase 79 (38-126) U/L Total Protein 6.4 (6.3-8.2) g/dL Albumin 4.2 (3.5-5.0) g/dL Amylase 47 (30-110) U/L Lipase 130 (23-300) U/L Urine Color Urine Appearance (Clear) Urine pH (5.0-8.0) Ur Specific [place] (1.001-1.035) Urine Protein (Negative) Urine Glucose (UA) (Negative) Urine Ketones (Negative) Urine Blood (Negative) Urine Nitrite (Negative) Urine Bilirubin (Negative) Urine Urobilinogen (<2.0) mg/dL Ur Leukocyte Esterase (Negative) 02/26/24 02/26/24 Range/Units 17:40 18:09 WBC (3.8-10.6) k/uL RBC (4.30-5.90) m/uL Hgb (13.0-17.5) gm/dL Hct (39.0-53.0) % MCV (80.0-100.0) fL MCH (25.0-35.0) pg MCHC (31.0-37.0) g/dL RDW (11.5-15.5) % Plt Count (150-450) k/uL MPV Neutrophils % % Lymphocytes % % Monocytes % % Eosinophils % % Basophils % % Neutrophils # (1.3-7.7) k/uL Lymphocytes # (1.0-4.8) k/uL Monocytes # (0-1.0) k/uL Eosinophils # (0-0.7) k/uL Basophils # (0-0.2) k/uL PT (10.0-12.5) sec INR (<1.2) APTT (22.0-30.0) sec Sodium (137-145) mmol/L Potassium (3.5-5.1) mmol/L Chloride (98-107) mmol/L Carbon Dioxide (22-30) mmol/L Anion Gap mmol/L BUN (9-20) mg/dL Creatinine (0.66-1.25) mg/dL Est GFR (CKD-EPI)AfAm (>60 ml/min/1.73 sqM) Est GFR (CKD-EPI)NonAf (>60 ml/min/1.73 sqM) Glucose (74-99) mg/dL Plasma Lactic Acid Mathew 1.9 (0.7-2.0) mmol/L Calcium (8.4-10.2) mg/dL Total Bilirubin (0.2-1.3) mg/dL AST (17-59) U/L ALT (4-49) U/L Alkaline Phosphatase (38-126) U/L Total Protein (6.3-8.2) g/dL Albumin (3.5-5.0) g/dL Amylase (30-110) U/L Lipase (23-300) U/L Urine Color Light Yellow Urine Appearance Clear (Clear) Urine pH 5.0 (5.0-8.0) Ur Specific [place] 1.016 (1.001-1.035) Urine Protein Negative (Negative) Urine Glucose (UA) Negative (Negative) Urine Ketones Negative (Negative) Urine Blood Negative (Negative) Urine Nitrite Negative (Negative) Urine Bilirubin Negative (Negative) Urine Urobilinogen <2.0 (<2.0) mg/dL Ur Leukocyte Esterase Negative (Negative) - EKG Data -: EKG Interpreted by Me EKG Comments: 12-lead Electrocardiogram Interpretation Note EKG was reviewed and interpreted by myself. 12-lead ECG performed at 1726 is interpreted by me as revealing normal sinus rhythm at a rate of 68 beats per minute. [place] is normal. ID interval is 156 ms, QRS duration is 105 ms, QTc is 389 ms.. There were no ST or T wave abnormalities to suggest myocardial ischemia or injury. R wave progression across the precordium was satisfactory. By my interpretation this EKG is non-diagnostic for acute ischemia. Disposition Clinical Impression: Post op infection Disposition: HOME SELF-CARE Condition: Good Instructions (If sedation given, give patient instructions): Cellulitis (ED) Prescriptions: Sulfamethox-Tmp 800-160Mg [Bactrim DS 800-160 mg] 1 tab PO Q12HR 7 Days #14 tab Is patient prescribed a controlled substance at d/c from ED?: No Referrals: Markel Cabrera DO [Primary Care Provider] - 1-2 days Micheal Castillo DO [Doctor of Osteopathic Medicine] - 1-2 days Time of Disposition: 19:42
[2024-02-26] MEDS: SULFAMETHOX-TMP 800-160MG 1 EACH TAB PO STA (19:59)
[2024-02-26] MEDS: ONDANSETRON 4 MG ODT STARTER PACK 2 TAB BTL PO STA (20:01)
[2024-02-26 20:09] VITALS: BP 147/89; RESP 18; TEMP 97.5
== END 2024-02-26 20:11 | disposition home or self-care (01) ==
LOC: EC 16:59
CPT/HCPCS: 36415; 74177; 80053; 81003; 82150; 83605; 83690; 85025; 85610; 85730; 93005; 96361; 96374; 96375; 99284